=== PATIENT | male | born 1955 | race Caucasian/White ===

== ENCOUNTER 2017-04-10 12:12 | Day surgery (SDC) | payer OTHER ==
[~2017-04-10] VITALS: Ht 177.8 cm; Wt 104.3 kg
[~2017-04-10 12:12] MED LIST: ANACIN 400-321 EACH PO; ASPIRIN EC325 MG PO; IBUPROFEN400 MG PO; MOTRIN IB200 MG PO; OMEPRAZOLE40 MG PO; OXYCODON-ACETA1 EAC2 PO; PRILOSEC20 MG PO; PROBIOTIC1 EAC1 PO; RESTASIS1 DROP OD; TAMIFLU75 MG PO; VITAMIN C500 M1 PO; VITAMIN D1000 UNI1 PO
[2017-04-10] MEDS ORDERED: ACID REDUCER150 MG PO (12:32)
[2017-04-10] MEDS ORDERED: VITAMIN C500 M4 PO (12:34)
--- NOTE | 2017-04-10 13:29 | NUR ---
04/10/17 1329 Mayra Simms 1326 PATIENT ARRIVES TO PACU ALERT AND ORIENTED X3. RESP EVEN AND UNLABORED, REQUESTING TO BE OFF OXYGEN, ROOM AIR SATS 97% DENIES PAIN OR NAUSEA, PASSING GAS.
--- NOTE | 2017-05-09 07:48 | OR ---
[facility] [address], [place] [address] Signed DATE OF PROCEDURE: 04/10/17 PREOPERATIVE DIAGNOSES Sensation of incomplete bowel evacuation. Known history of diverticular changes of the colon. POSTOPERATIVE DIAGNOSIS Sigmoid and left-sided diverticulosis, otherwise normal. PROCEDURE: Total colonoscopy of the cecum. SURGEON: Annetta Morris MD ANESTHESIA: Intravenous sedation, Fentanyl 100 mcg, Versed 4 mg. INDICATION This 61-year-old white man is a patient of Dr. Shelton Crane and complains of incomplete bowel evacuation. He is known to have a history of diverticulosis. He underwent a gastric emptying study under my direction on March 25, 2017, following an upper endoscopy on March 11, 2017. He did have some delayed gastric emptying. He is admitted at this time to undergo colonoscopy to better evaluate the source of his complaint of incomplete bowel evacuation understanding the risks of bleeding, infection, perforation. FINDINGS The prep was good. Complete colonoscopy was undertaken of the cecum. There were numerous diverticula both small and large of the sigmoid and left colon, but no evidence of obstruction proper. The rectum and remaining colon were normal. DESCRIPTION OF PROCEDURE The patient was brought to the endoscopy suite and placed in lateral decubitus position, given intravenous sedation to the point of slurred speech and nystagmus. Digital rectal examination was normal. An Olympus video colonoscope was passed in the rectum and manipulated throughout the colon ultimately intubating the cecum itself. The ileocecal valve and appendiceal orifice were normal. The scope was withdrawn from that point. Examination throughout showed no evidence of polyps or cancer, but did show numerous diverticula of the sigmoid and left colon as previously noted. Retroflexed view in the rectum did confirm internal hemorrhoids, none of which were problematic. Scope was removed and the patient was taken to recovery room in good condition. Electronically Signed By: ANNETTA MORRIS MD 05/09/17 0748 PATIENT NAME: SLIME FAIR OPERATIVE REPORT DATE OF : 53 PHYSICIAN: ANNETTA MORRIS MD REPORT #: [id number] REPORT IS CONFIDENTIAL AND NOT TO BE RELEASED WITHOUT AUTHORIZATION [facility] [address], [place] [address] Signed CONCLUDING DIAGNOSIS: Diverticulosis. PLAN Recommend Citrucel 1 tablespoon daily and consideration for MiraLAX 1 scoop daily. He will return if there are ongoing problems. MD SKYE Orantes/Lucina /[id number] cc: Daniele Crane MD Electronically Signed By: ANNETTA MORRIS MD 05/09/17 0748 PATIENT NAME: SLIME FAIR OPERATIVE REPORT DATE OF : 53 PHYSICIAN: ANNETTA MORRIS MD REPORT #: [id number] REPORT IS CONFIDENTIAL AND NOT TO BE RELEASED WITHOUT AUTHORIZATION
== END 2017-04-10 14:00 | disposition home or self-care (01) ==
LOC: OPS 12:12 → DS 12:12 → OPS 12:15 → DS 12:15 → OPS 13:00
PROVIDERS: Surgery
PROC: 0DJD8ZZ Inspection of Lower Intestinal Tract, Via Natural or Artificial Opening Endoscopic (ICD-10-PCS; principal; 2017-04-10 13:00)
DX: K57.30 Diverticulosis of large intestine without perforation or abscess without bleeding (principal); F17.200 Nicotine dependence, unspecified, uncomplicated; K21.9 Gastro-esophageal reflux disease without esophagitis; I10 Essential (primary) hypertension; E66.3 Overweight; Z88.8 Allergy status to other drugs, medicaments and biological substances; Z88.5 Allergy status to narcotic agent; Z98.890 Other specified postprocedural states; Z90.49 Acquired absence of other specified parts of digestive tract; Z68.33 Body mass index [BMI] 33.0-33.9, adult
CPT/HCPCS: 99152; 99153; J2250; J3010; J7120

== ENCOUNTER 2019-06-22 12:54 | Day surgery (SDC) | payer OTHER, MEDICARE ==
[~2019-06-22] VITALS: Ht 177.8 cm; Wt 104.3 kg
[~2019-06-22 12:54] MED LIST changes: +ACID REDUCER150 MG PO; +MYLANTA GAS MIN42 MG PO; +PRILOSEC OTC20 MG PO; +VITAMIN C500 M4 PO
--- NOTE | 2019-06-22 15:05 | NUR ---
06/22/19 1505 Mayra Simms 1500 PATIENT ARRIVES TO PACU AWAKE BUT DROWSY/CONFUSED. RESP EVEN AND UNLABORED, NC AT 5 LITERS, OFF ON ARRIVAL TO PACU. ROOM AIR SATS >90%. PATIENT SLEEPING WHEN NOT STIMULATED.
--- NOTE | 2019-06-23 12:31 | OR ---
[facility] [address] [place], [place] [address] Signed DATE OF OPERATION: 06/22/2019 SURGEON: Annetta Morris MD PREOPERATIVE DIAGNOSES: 1. Persistent epigastric pain, gas bloat and regurgitation without associated vomiting. 2. Known history of diminished gastric motility; history of laparoscopic cholecystectomy, known hiatal hernia and reflux. POSTOPERATIVE DIAGNOSES: Normal-appearing esophagus, poor flap valve, mild antral gastritis and duodenitis. PROCEDURE: Esophagogastroduodenoscopy with biopsy. ANESTHESIA: Intravenous sedation, fentanyl 100 mcg, Versed 5 mg. INDICATION: This 63-year-old white man is a patient of Dr. Crane and well known to me from the past. He has had new onset of worsening symptoms of epigastric pain, bloating and a feeling of regurgitation, though no venancio vomiting. He has no dysphagia. He has been on PPI medication, H2 blockers, recently given also simethicone as well as Carafate slurry, but none of the things seem to improve his symptoms much. He has undergone evaluation for similar complaints in the past. He has undergone laparoscopic cholecystectomy in 2017. Additional evaluation included a gastric emptying study at least twice, which shows diminished gastric emptying. He has no diabetes. He is admitted at this time to undergo upper endoscopy to better characterize the problem, understanding the risks of bleeding, infection, and perforation. FINDINGS: Mild antral gastritis was noted as was mild duodenitis. Rugal folds were normal. There was no sign of bezoar. The esophagus was completely normal, though the flap valve was somewhat poor and easily effaced. CLOtest was -20 minutes postprocedure. Most likely, his symptoms are that of gastric dysmotility. DESCRIPTION OF PROCEDURE: The patient was brought to the endoscopy suite, given topical Hurricaine spray hypopharyngeal anesthesia and placed in lateral decubitus position and given intravenous sedation to the point of slurred speech and nystagmus. A bite block was placed. An Electronically Signed By: ANNETTA MORRIS MD 06/23/19 1231 PATIENT NAME: SLIME FAIR OPERATIVE REPORT DATE OF : 53 REPORT #: [id number] PHYSICIAN: ANNETTA MORRIS MD PCP: RAO CRANE MD REPORT IS CONFIDENTIAL AND NOT TO BE RELEASED WITHOUT AUTHORIZATION [facility] [address] [place], [place] [address] Signed Olympus video upper endoscope was passed in the hypopharynx. The vocal cords appeared normal. Scope was advanced to the esophagus throughout its length and it was normal. Scope was then passed into the stomach, which was insufflated with air. There was no sign of retained food or bile. Rugal folds appeared normal. Antrum appeared normal except in the peripyloric area where there was mild inflammation. Pylorus was normal without distortion or obstruction. The scope was passed into the duodenum, which had mild bulbar duodenitis, but no sign of ulcer and no 2nd or 3rd portion problems. Biopsies were taken of the duodenal bulb. The scope was withdrawn to the antrum where biopsies were obtained. Retroflexed view and withdrawal of the scope showed easily that the flap valve was effaced. There was no sign of actual esophagitis, however. The scope was straightened and withdrawn to the distal esophagus where biopsies were obtained and further withdrawal to the midesophagus where also biopsies were obtained. Nevertheless, however, the esophagus appeared normal. The scope was removed. The patient was taken to recovery room in good condition. CONCLUDING DIAGNOSIS: Most likely, he has a gastric dysmotility problem accounting for his symptoms given the findings and previous evaluation. PLAN: We will ask him to continue with the PPI medication and the simethicone. He can continue with the Carafate as well, but we will initiate also Reglan 10 mg with each meal and at bedtime. We will see him back in four to six weeks and assess his progress. MD SKYE Orantes/BEVERLYL /[id number] cc: Rao Crane MD Copies: RAO CRANE MD ~ Electronically Signed By: ANNETTA MORRIS MD 06/23/19 1231 PATIENT NAME: SLIME FAIR OPERATIVE REPORT DATE OF : 53 REPORT #: [id number] PHYSICIAN: ANNETTA MORRIS MD PCP: RAO CRANE MD REPORT IS CONFIDENTIAL AND NOT TO BE RELEASED WITHOUT AUTHORIZATION
--- NOTE | 2019-06-24 13:21 | PATH ---
[facility] [address] [place], [place] [address] Signed SPECIMEN(S): A DUODENUM BULB SPECIMEN(S): B ANTRUM/PYLORUS SPECIMEN(S): C LOWER ESOPHAGUS SPECIMEN(S): D MIDDLE ESOPHAGUS SPECIMEN SOURCE: A. DUODENUM BULB B. ANTRUM/PYLORUS C. LOWER ESOPHAGUS D. MIDDLE ESOPHAGUS CLINICAL HISTORY: Right upper abdominal pain, changes in bowel habits, reflux with esophagitis, dysmotility of stomach. Findings: Small hiatal hernia, mild antral gastritis. MICROSCOPIC DESCRIPTION: Histologic sections of all submitted blocks are examined by light microscopy. These findings, together with the gross examination, support the pathologic diagnosis. FINAL PATHOLOGIC DIAGNOSIS: A. Duodenal bulb, biopsy: - Duodenal mucosa without histopathologic abnormality. - Negative for Helicobacter organisms on HE stain. - Negative for dysplasia or malignancy. B. Stomach, antrum/pylori, biopsy: - Antral-type mucosa with no histopathologic abnormality. - Negative for Helicobacter organisms on HE stain. - Negative for dysplasia or malignancy. C. Esophagus, lower, biopsy: - Squamous mucosa with changes consistent with mild reflux esophagitis. - Negative for intestinal metaplasia, dysplasia, or malignancy. D. Esophagus, mid, biopsy: - Squamous mucosa with changes consistent with mild reflux esophagitis. - Negative for intestinal metaplasia, dysplasia, or malignancy. COMMENT: Sections of the distal and mid esophageal biopsies are similar and demonstrate benign squamous mucosa with mucosal capillary dilation, scattered intraepithelial lymphocytes, and areas of mild basal cell hyperplasia. These findings are consistent with changes secondary to bile reflux esophagitis. Clinical correlation is required. PATIENT NAME: SLIME FAIR PATHOLOGY DATE OF : 53 REPORT #: [id number] PHYSICIAN: FELICITAS CONRAD PCP: RAO MORROW MD REPORT IS CONFIDENTIAL AND NOT TO BE RELEASED WITHOUT AUTHORIZATION [facility] [address] [place], [place] [address] Signed NAL:[id number]:[id number] GROSS DESCRIPTION: Four specimens are received in four containers, labeled "RP." A. The specimen, labeled "RP, duodenal bulb biopsy," is received in formalin and consists of two, 0.1 and 0.2 cm girard-brown tissue fragments Specimen is entirely submitted in cassette (A1). B. The specimen, labeled "RP, antrum/pylorus biopsy," is received in formalin and consists of two, 0.2 and 0.3 cm girard tissue fragments. Specimen is entirely submitted in cassette (B1). C. The specimen, labeled "RP, lower esophageal biopsy," is received in formalin and consists of two, 0.2 and 0.3 cm girard-white tissue fragments. Specimen is entirely submitted in cassette (C1). D. The specimen, labeled "RP, mid-esophageal biopsy," is received in formalin and consists of two girard-white tissue fragments both measuring 0.2 cm. Specimen is entirely submitted in cassette (D1). AM (under the direct supervision of a pathologist) The Gross Description was prepared using a voice recognition system. The report was reviewed for accuracy; however, sound-alike word errors, addition and/or deletions may occur. If there is any question about this report, please contact Client Services. PERFORMING LABORATORY: The technical component was performed by [facility], [address] [place] [id number] (All Around Patternmaker: Shelley Wilson MD; CLIA# [id number]). Professional interpretation was performed by [facility], [facility], [address] [address] (All Around Patternmaker: Piotr Ca MD; CLIA# [id number]). Diagnostician: Judy Mills MD Pathologist Electronically Signed 06/24/2019 Copies: ~ PATIENT NAME: SLIME FAIR PATHOLOGY DATE OF : 53 REPORT #: [id number] PHYSICIAN: FELICITAS PATHOLOGY PCP: RAO MORROW MD REPORT IS CONFIDENTIAL AND NOT TO BE RELEASED WITHOUT AUTHORIZATION
== END 2019-06-22 15:40 | disposition home or self-care (01) ==
LOC: OPS 12:54 → DS 12:54 → OPS 14:00 → DS 14:00 → OPS 15:40
PROVIDERS: Surgery
PROC: 0DB78ZX Excision of Stomach, Pylorus, Via Natural or Artificial Opening Endoscopic, Diagnostic (ICD-10-PCS; 2019-06-22)
PROC: 0DB38ZX Excision of Lower Esophagus, Via Natural or Artificial Opening Endoscopic, Diagnostic (ICD-10-PCS; 2019-06-22)
PROC: 0DB28ZX Excision of Middle Esophagus, Via Natural or Artificial Opening Endoscopic, Diagnostic (ICD-10-PCS; 2019-06-22)
PROC: 0DB98ZX Excision of Duodenum, Via Natural or Artificial Opening Endoscopic, Diagnostic (ICD-10-PCS; principal; 2019-06-22 14:00)
DX: K29.70 Gastritis, unspecified, without bleeding (principal); K29.80 Duodenitis without bleeding; K21.0 Gastro-esophageal reflux disease with esophagitis; K31.89 Other diseases of stomach and duodenum; Z88.5 Allergy status to narcotic agent; Z88.8 Allergy status to other drugs, medicaments and biological substances; Z91.012 Allergy to eggs; Z91.018 Allergy to other foods; Z79.899 Other long term (current) drug therapy; Z98.890 Other specified postprocedural states
CPT/HCPCS: G0500; J2250; J3010; J7121

== ENCOUNTER 2019-06-25 16:29 | Emergency (ER) | payer OTHER, MEDICARE ==
[~2019-06-25] VITALS: Ht 177.8 cm; Wt 106.6 kg
--- OUTSIDE RECORDS SUMMARY | ~2019-06-25 | XMS | Encounter Summary ---
Demographics + + + | Address | [address] | | | [place] [address] | + + + | Home Phone | | + + + | Preferred Language | Unknown | + + + | Marital Status | Unknown | + + + | Mormonism Affiliation | Unknown | + + + | Race | Unknown | + + + | Ethnic Group | Unknown | + + + Author + + + | Author | [facility] | | | and [place] | + + + | Organization | [facility] | | | and [place] | + + + | Address | Unknown | + + + | Phone | Unavailable | + + + Care Team Providers + +------+ + | Care Bag Tester Name | Role | Phone | + +------+ + PCP | Unavailable | + +------+ + Encounter Details +--------+ + + + + | Date | Type | Department | Care Team | Description | +--------+ + + + + | 09/23/ | Hospital | [facility] | | | | 2006 | Encounter | MED CTR LABORATORY | | | | | | [address] | | | | | | [place] | | | | | | [address] | | | | | | [phone] | | | +--------+ + + + + Social History + +-------+ +--------+------+ | Tobacco Use | Types | Packs/Day | Years | Date | | | | | Used | | + +-------+ +--------+------+ | Never Assessed | | | | | + +-------+ +--------+------+ + + + | Sex Assigned at | Date Recorded | | | | + + + | Not on file | | + + + + + + + | Job Start Date | Occupation | Industry | + + + + | Not on file | Not on file | Not on file | + + + + + + + + | Travel History | Travel Start | Travel End | + + + + + + | No recent travel history available. | + + documented as of this encounter Plan of Treatment Not on filedocumented as of this encounter Visit Diagnoses Not on filedocumented in this encounter"
--- OUTSIDE RECORDS SUMMARY | ~2019-06-25 | XMS | Encounter Summary ---
Demographics + + + | Address | [address] | | | [place] [address] | + + + | Home Phone | | + + + | Preferred Language | Unknown | + + + | Marital Status | Unknown | + + + | Confucianist Affiliation | Unknown | + + + | Race | Unknown | + + + | Ethnic Group | Unknown | + + + Author + + + | Author | [facility] | | | and [place] | + + + | Organization | [facility] | | | and [place] | + + + | Address | Unknown | + + + | Phone | Unavailable | + + + Care Team Providers + +------+ + | Care Cattle Producers Name | Role | Phone | + +------+ + PCP | Unavailable | + +------+ + Encounter Details +--------+ + + + + | Date | Type | Department | Care Team | Description | +--------+ + + + + | 09/23/ | Hospital | [facility] | | | | 2006 | Encounter | MED CTR XRAY [address] | | | | | | [place] | | | | | | [place] [address] | | | | | | [phone] | | | +--------+ + + + [...]
--- OUTSIDE RECORDS SUMMARY | ~2019-06-25 | XMS | Clinical Summary ---
Demographics + + + | Address | [address] | | | [place] [address] | + + + | Home Phone | | + + + | Preferred Language | Unknown | + + + | Marital Status | Unknown | + + + | Uatsdin Affiliation | Unknown | + + + | Race | Unknown | + + + | Ethnic Group | Unknown | + + + Author + + + | Author | [facility] | | | and [place] | + + + | Organization | [facility] | | | and [place] | + + + | Address | Unknown | + + + | Phone | Unavailable | + + + Care Team Providers + +------+ + | Care Academic Adviser Name | Role | Phone | + +------+ + PCP | Unavailable | + +------+ + Allergies Not on File Medications Not on file Active Problems Not on file Social History + +-------+ +--------+------+ | Tobacco [...] recent travel history available. | + + Last Filed Vital Signs Not on file Plan of Treatment + + + + + | Health Maintenance | Due Date | Last Done | Comments | + + + + + | Vaccine: | | | | | Dtap/Tdap/Td (1 - | 5 | | | | Tdap) | | | | + + + + + | Vaccine: Zoster (1 | | | | | of 2) | 4 | | | + + + + + | Vaccine: Influenza | | | | | (#1) | 9 | | | + + + + + Results Not on filefrom Last 3 Months"
--- OUTSIDE RECORDS SUMMARY | ~2019-06-25 | XMS | Encounter Summary ---
Demographics + + + | Address | [address] | | | [place] [address] | + + + | Home Phone | | + + + | Preferred Language | Unknown | + + + | Marital Status | Unknown | + + + | Protestant Affiliation | Unknown | + + + | Race | Unknown | + + + | Ethnic Group | Unknown | + + + Author + + + | Author | [facility] | | | and [place] | + + + | Organization | [facility] | | | and [place] | + + + | Address | Unknown | + + + | Phone | Unavailable | + + + Care Team Providers + +------+ + | Care City Planner Name | Role | Phone | + +------+ + PCP | Unavailable | + +------+ + Encounter Details +--------+ + + + + | Date | Type | Department | Care Team | Description | +--------+ + + + + | 09/01/ | Hospital | [facility] | | | | 2006 | Encounter | MED CTR GENERIC IP | | | | | | CONV DEPT [address] | | | | | | [place], | | | | | | [place] [address] | | | | | | [phone] | | | +--------+ + + + [...]
--- OUTSIDE RECORDS SUMMARY | ~2019-06-25 | XMS | Encounter Summary ---
Demographics + + + | Address | [address] | | | [place] [address] | + + + | Home Phone | | + + + | Preferred Language | Unknown | + + + | Marital Status | Unknown | + + + | Restorationism Affiliation | Unknown | + + + | Race | Unknown | + + + | Ethnic Group | Unknown | + + + Author + + + | Author | [facility] | | | and [place] | + + + | Organization | [facility] | | | and [place] | + + + | Address | Unknown | + + + | Phone | Unavailable | + + + Care Team Providers + +------+ + | Care Vocational Teacher Name | Role | Phone | + +------+ + PCP | Unavailable | + +------+ + Encounter Details +--------+ + + + + | Date | Type | Department | Care Team | Description | +--------+ + + + + | 11/07/ | Hospital | [facility] | | | | 2006 | Encounter | MED CTR XRAY [address] | | | | | | [place] | | | | | | [place] [address] | | | | | | [phone] | | | +--------+ + + + [...]
--- OUTSIDE RECORDS SUMMARY | ~2019-06-25 | XMS | Encounter Summary ---
Demographics + + + | Address | [address] | | | [place] [address] | + + + | Home Phone | | + + + | Preferred Language | Unknown | + + + | Marital Status | Unknown | + + + | Hoahaoism Affiliation | Unknown | + + + | Race | Unknown | + + + | Ethnic Group | Unknown | + + + Author + + + | Author | [facility] | | | and [place] | + + + | Organization | [facility] | | | and [place] | + + + | Address | Unknown | + + + | Phone | Unavailable | + + + Care Team Providers + +------+ + | Care Internet Salesperson Name | Role | Phone | + +------+ + PCP | Unavailable | + +------+ + Encounter Details +--------+ + + + + | Date | Type | Department | Care Team | Description | +--------+ + + + + | 11/07/ | Hospital | [facility] | | | | 2006 | Encounter | MED CTR XRAY [address] | | | | | | [place] | | | | | | [place] [address] | | | | | | [phone] | | | +--------+ + + + [...]
--- OUTSIDE RECORDS SUMMARY | ~2019-06-25 | XMS | Encounter Summary ---
Demographics + + + | Address | [address] | | | [place] [address] | + + + | Home Phone | | + + + | Preferred Language | Unknown | + + + | Marital Status | Unknown | + + + | Mormonism Affiliation | Unknown | + + + | Race | Unknown | + + + | Ethnic Group | Unknown | + + + Author + + + | Author | [facility] | | | and [place] | + + + | Organization | [facility] | | | and [place] | + + + | Address | Unknown | + + + | Phone | Unavailable | + + + Care Team Providers + +------+ + | Care Conduit Worker Name | Role | Phone | + +------+ + PCP | Unavailable | + +------+ + Encounter Details +--------+ + + + + | Date | Type | Department | Care Team | Description | +--------+ + + + + | 09/11/ | Hospital | [facility] | | | | 2006 | Encounter | MED CTR XRAY [address] | | | | | | [place] | | | | | | [place] [address] | | | | | | [phone] | | | +--------+ + + + [...]
--- OUTSIDE RECORDS SUMMARY | ~2019-06-25 | XMS | Encounter Summary ---
Demographics + + + | Address | [address] | | | [place] [address] | + + + | Home Phone | | + + + | Preferred Language | Unknown | + + + | Marital Status | Unknown | + + + | Zoroastrianism Affiliation | Unknown | + + + | Race | Unknown | + + + | Ethnic Group | Unknown | + + + Author + + + | Author | [facility] | | | and [place] | + + + | Organization | [facility] | | | and [place] | + + + | Address | Unknown | + + + | Phone | Unavailable | + + + Care Team Providers + +------+ + | Care Pull Through Hooker Name | Role | Phone | + +------+ + PCP | Unavailable | + +------+ + Encounter Details +--------+ + + + + | Date | Type | Department | Care Team | Description | +--------+ + + + + | 12/05/ | Hospital | [facility] | | | | 2006 | Encounter | MED CTR XRAY [address] | | | | | | [place] | | | | | | [place] [address] | | | | | | [phone] | | | +--------+ + + + [...]
--- OUTSIDE RECORDS SUMMARY | ~2019-06-25 | XMS | Encounter Summary ---
Demographics + + + | Address | [address] | | | [place] [address] | + + + | Home Phone | | + + + | Preferred Language | Unknown | + + + | Marital Status | Unknown | + + + | Restorationist Affiliation | Unknown | + + + | Race | Unknown | + + + | Ethnic Group | Unknown | + + + Author + + + | Author | [facility] | | | and [place] | + + + | Organization | [facility] | | | and [place] | + + + | Address | Unknown | + + + | Phone | Unavailable | + + + Care Team Providers + +------+ + | Care Instructor Looping Name | Role | Phone | + +------+ + PCP | Unavailable | + +------+ + Encounter Details +--------+ + + + + | Date | Type | Department | Care Team | Description | +--------+ + + + + | 09/23/ | Hospital | [facility] | | | | 2006 | Encounter | MED CTR XRAY [address] | | | | | | [place] | | | | | | [place] [address] | | | | | | [phone] | | | +--------+ + + + [...]
--- OUTSIDE RECORDS SUMMARY | ~2019-06-25 | XMS | Encounter Summary ---
Demographics + + + | Address | [address] | | | [place] [address] | + + + | Home Phone [...] | + + + | Organization | [facility] | | | and [place] | + + + | Address | Unknown | + + + | Phone | Unavailable | + + + Care Team Providers + +------+ + | Care Follow Up Manager Name | Role | Phone | + +------+ + PCP | Unavailable | + +------+ + Encounter Details +--------+ + + + + | Date | Type | Department | Care Team | Description | +--------+ + + + + | 08/21/ | Hospital | [facility] | | | | 2006 | Encounter | MED CTR XRAY [address] | | | | | | [place] | | | | | | [place] [address] | | | | | | [phone] | | | +--------+ + + + [...]
--- OUTSIDE RECORDS SUMMARY | ~2019-06-25 | XMS | Encounter Summary ---
Demographics + + + | Address | [address] | | | [place] [address] | + + + | Home Phone [...] + + + | Author | [facility] | | | and [place] | + + + | Organization | [facility] | | | and [place] | + + + | Address | Unknown | + + + | Phone | Unavailable | + + + Care Team Providers + +------+ + | Care Hydraulic Pile Hammer Operator Name | Role | Phone | + +------+ + PCP | Unavailable | + +------+ + Encounter Details +--------+ + + + + | Date | Type | Department | Care Team | Description | +--------+ + + + + | 09/13/ | Hospital | [facility] | | | | 2006 - | Encounter | MED CTR GENERIC IP | | | | | | CONV DEPT [address] | | | | 09/14/ | | [place], | | | | 2006 | | [place] [address] | | | | | | [phone] | | | +--------+ + + + [...]
--- OUTSIDE RECORDS SUMMARY | ~2019-06-25 | XMS | Clinical Summary ---
Demographics + + + | Address | [address] | | | [place] [address] | + + + | Home Phone | | + + + | Preferred Language | Unknown | + + + | Marital Status | Unknown | + + + | Jain Affiliation | Unknown | + + + | Race | Unknown | + + + | Ethnic Group | Unknown | + + + Author + + + | Author | [facility] | | | and Bert | + + + | Organization | [facility] | | | and [place] | + + + | Address | Unknown | + + + | Phone | Unavailable | + + + Care Team Providers + +------+ + | Care Retail Sales Associate Bilingual Name | Role | Phone | + [...]
--- OUTSIDE RECORDS SUMMARY | ~2019-06-25 | XMS | Encounter Summary ---
Demographics + + + | Address | [address] | | | [place] [address] | + + + | Home Phone | | + + + | Preferred Language | Unknown | + + + | Marital Status | Unknown | + + + | Nondenominational Affiliation | Unknown | + + + | Race | Unknown | + + + | Ethnic Group | Unknown | + + + Author + + + | Author | [facility] | | | and [place] | + + + | Organization | [facility] | | | and [place] | + + + | Address | Unknown | + + + | Phone | Unavailable | + + + Care Team Providers + +------+ + | Care Abap Developer Name | Role | Phone | + +------+ + PCP | Unavailable | + +------+ + Encounter Details +--------+ + + + + | Date | Type | Department | Care Team | Description | +--------+ + + + + | 09/23/ | Hospital | [facility] | | | | 2006 | Encounter | MED CTR LABORATORY | | | | | | [address] | | | | | | [place] | | | | | | [address] | | | | | | [phone] | | | +--------+ + + + [...]
--- OUTSIDE RECORDS SUMMARY | ~2019-06-25 | XMS | Encounter Summary ---
Demographics + + + | Address | [address] | | | [place] [address] | + + + | Home Phone | | + + + | Preferred Language | Unknown | + + + | Marital Status | Unknown | + + + | Scientologist Affiliation | Unknown | + + + | Race | Unknown | + + + | Ethnic Group | Unknown | + + + Author + + + | Author | [facility] | | | and [place] | + + + | Organization | [facility] | | | and [place] | + + + | Address | Unknown | + + + | Phone | Unavailable | + + + Care Team Providers + +------+ + | Care Hand Lacer Name | Role | Phone | + +------+ + PCP | Unavailable | + +------+ + Encounter Details +--------+ + + + + | Date | Type | Department | Care Team | Description | +--------+ + + + + | 09/01/ | Hospital | [facility] | | | | 2006 | Encounter | MED CTR GENERIC IP | | | | | | CONV DEPT [address] | | | | | | [place], | | | | | | [place] [address] | | | | | | [phone] | | | +--------+ + + + [...]
--- OUTSIDE RECORDS SUMMARY | ~2019-06-25 | XMS | Encounter Summary ---
Demographics + + + | Address | [address] | | | [place] [address] | + + + | Home Phone | | + + + | Preferred Language | Unknown | + + + | Marital Status | Unknown | + + + | Taoism Affiliation | Unknown | + + + | Race | Unknown | + + + | Ethnic Group | Unknown | + + + Author + + + | Author | [facility] | | | and [place] | + + + | Organization | [facility] | | | and [place] | + + + | Address | Unknown | + + + | Phone | Unavailable | + + + Care Team Providers + +------+ + | Care Bowstring Maker Name | Role | Phone | + +------+ + PCP | Unavailable | + +------+ + Encounter Details +--------+ + + + + | Date | Type | Department | Care Team | Description | +--------+ + + + + | 12/05/ | Hospital | [facility] | | | | 2006 | Encounter | MED CTR XRAY [address] | | | | | | [place] | | | | | | [place] [address] | | | | | | [phone] | | | +--------+ + + + [...]
--- OUTSIDE RECORDS SUMMARY | ~2019-06-25 | XMS | Encounter Summary ---
Demographics + + + | Address | [address] | | | [place] [address] | + + + | Home Phone | | + + + | Preferred Language | Unknown | + + + | Marital Status | Unknown | + + + | Christian Affiliation | Unknown | + + + | Race | Unknown | + + + | Ethnic Group | Unknown | + + + Author + + + | Author | [facility] | | | and [place] | + + + | Organization | [facility] | | | and [place] | + + + | Address | Unknown | + + + | Phone | Unavailable | + + + Care Team Providers + +------+ + | Care Lead Generator Name | Role | Phone | + +------+ + PCP | Unavailable | + +------+ + Encounter Details +--------+ + + + + | Date | Type | Department | Care Team | Description | +--------+ + + + + | 09/11/ | Hospital | [facility] | | | | 2006 | Encounter | MED CTR XRAY [address] | | | | | | [place] | | | | | | [place] [address] | | | | | | [phone] | | | +--------+ + + + [...]
--- OUTSIDE RECORDS SUMMARY | ~2019-06-25 | XMS | Encounter Summary ---
Demographics + + + | Address | [address] | | | [place] [address] | + + + | Home Phone | | + + + | Preferred Language | Unknown | + + + | Marital Status | Unknown | + + + | Denominational Affiliation | Unknown | + + + | Race | Unknown | + + + | Ethnic Group | Unknown | + + + Author + + + | Author | [facility] | | | and [place] | + + + | Organization | and [facility] | | | and [place] | + + + | Address | Unknown | + + + | Phone | Unavailable | + + + Care Team Providers + +------+ + | Care Doughnut Maker Name | Role | Phone | + +------+ + PCP | Unavailable | + +------+ + Encounter Details +--------+ + + + + | Date | Type | Department | Care Team | Description | +--------+ + + + + | 09/13/ | Hospital | [facility] | | | | 2006 - | Encounter | MED CTR GENERIC IP | | | | | | CONV DEPT [address] | | | | 09/14/ | | [place], | | | | 2006 | | [place] [address] | | | | | | [phone] | | | +--------+ + + + [...]
--- OUTSIDE RECORDS SUMMARY | ~2019-06-25 | XMS | Encounter Summary ---
Demographics + + + | Address | [address] | | | [place] [address] | + + + | Home Phone | | + + + | Preferred Language | Unknown | + + + | Marital Status | Unknown | + + + | Congregational Affiliation | Unknown | + + + | Race | Unknown | + + + | Ethnic Group | Unknown | + + + Author + + + | Author | [facility] | | | and [place] | + + + | Organization | [facility] | | | and [place] | + + + | Address | Unknown | + + + | Phone | Unavailable | + + + Care Team Providers + +------+ + | Care Semiconductor Packages Sealer Name | Role | Phone | + +------+ + PCP | Unavailable | + +------+ + Encounter Details +--------+ + + + + | Date | Type | Department | Care Team | Description | +--------+ + + + + | 08/21/ | Hospital | [facility] | | | | 2006 | Encounter | MED CTR XRAY [address] | | | | | | [place] | | | | | | [place] [address] | | | | | | [phone] | | | +--------+ + + + [...]
[2019-06-25] MEDS ORDERED: REGLAN10 MG PO (16:56)
[2019-06-25] MEDS ORDERED: SUCRALFATE1 GM PO (16:56)
[2019-06-25] MEDS ORDERED: NORCO 7.5-3251 EACH PO (19:26)
[2019-06-25] MEDS ORDERED: FLAGYL500 MG PO (19:26)
[2019-06-25] MEDS ORDERED: LEVAQUIN750 MG PO (19:26)
== END 2019-06-25 21:08 | disposition home or self-care (01) ==
LOC: ED 16:29
DX: K57.32 Diverticulitis of large intestine without perforation or abscess without bleeding (principal); Z87.891 Personal history of nicotine dependence; Z79.899 Other long term (current) drug therapy; Z79.82 Long term (current) use of aspirin
CPT/HCPCS: 51798; 74177; 80053; 81001; 83690; 85025; 96368; 99284-25; J1956

== ENCOUNTER 2019-07-21 07:33 | Emergency (ER) | payer OTHER, MEDICARE ==
[~2019-07-21] VITALS: Ht 177.8 cm; Wt 101.6 kg
--- OUTSIDE RECORDS SUMMARY | ~2019-07-21 | XMS | Encounter Summary ---
Demographics + + + | Address | [address] | | | [place] [address] | + + + | Home Phone | | + + + | Preferred Language | Unknown | + + + | Marital Status | Unknown | + + + | Alevism Affiliation | Unknown | + + + | Race | Unknown | + + + | Ethnic Group | Unknown | + + + Author + + + | Author | [facility] | | | and [place] | + + + | Organization | [facility] | | | and [place] | + + + | Address | Unknown | + + + | Phone | Unavailable | + + + Care Team Providers + +------+ + | Care Swimming Coach Or Instructor Name | Role | Phone | + +------+ + PCP | Unavailable | + +------+ + Encounter Details +--------+ + + + + | Date | Type | Department | Care Team | Description | +--------+ + + + + | 09/23/ | Hospital | [facility] | | | | 2006 | Encounter | MED CTR LABORATORY | | | | | | [address] | | | | | | [place] | | | | | | [address] | | | | | | [phone] | | | +--------+ + + + [...]
--- OUTSIDE RECORDS SUMMARY | ~2019-07-21 | XMS | Encounter Summary ---
Demographics + + + | Address | [address] | | | [place] [address] | + + + | Home Phone | | + + + | Preferred Language | Unknown | + + + | Marital Status | Unknown | + + + | Faith Affiliation | Unknown | + + + | Race | Unknown | + + + | Ethnic Group | Unknown | + + + Author + + + | Author | [facility] | | | and [place] | + + + | Organization | [facility] | | | and [place] | + + + | Address | Unknown | + + + | Phone | Unavailable | + + + Care Team Providers + +------+ + | Care Senior Business Architect Name | Role | Phone | + +------+ + PCP | Unavailable | + +------+ + Encounter Details +--------+ + + + + | Date | Type | Department | Care Team | Description | +--------+ + + + + | 09/23/ | Hospital | [facility] | | | | 2006 | Encounter | MED CTR XRAY [address] | | | | | | [place] | | | | | | [place] [address] | | | | | | [phone] | | | +--------+ + + + [...]
--- OUTSIDE RECORDS SUMMARY | ~2019-07-21 | XMS | Encounter Summary ---
Demographics + + + | Address | [address] | | | [place] [address] | + + + | Home Phone | | + + + | Preferred Language | Unknown | + + + | Marital Status | Unknown | + + + | Mu-Ism Affiliation | Unknown | + + + | Race | Unknown | + + + | Ethnic Group | Unknown | + + + Author + + + | Author | [facility] | | | and [place] | + + + | Organization | [facility] | | | and [place] | + + + | Address | Unknown | + + + | Phone | Unavailable | + + + Care Team Providers + +------+ + | Care House Repairer Name | Role | Phone | + +------+ + PCP | Unavailable | + +------+ + Encounter Details +--------+ + + + + | Date | Type | Department | Care Team | Description | +--------+ + + + + | 09/11/ | Hospital | [facility] | | | | 2006 | Encounter | MED CTR XRAY [address] | | | | | | [place] | | | | | | [place] [address] | | | | | | [phone] | | | +--------+ + + + [...]
--- OUTSIDE RECORDS SUMMARY | ~2019-07-21 | XMS | Clinical Summary ---
Demographics + + + | Address | [address] | | | [place] [address] | + + + | Home Phone | | + + + | Preferred Language | Unknown | + + + | Marital Status | Unknown | + + + | Baptist Affiliation | Unknown | + + + | Race | Unknown | + + + | Ethnic Group | Unknown | + + + Author + + + | Author | [facility] | | | and Bert | + + + | Organization | [facility] | | | and [place] | + + + | Address | Unknown | + + + | Phone | Unavailable | + + + Care Team Providers + +------+ + | Care Business Office Coordinator Name | Role | Phone | + [...] | Vaccine: | | | | | Pneumococcal 65+ (1 | 9 | | | | of 2 - PCV13) | | | | + + + + + Results Not on filefrom Last 3 Months"
--- OUTSIDE RECORDS SUMMARY | ~2019-07-21 | XMS | Clinical Summary ---
Demographics + + + | Address | [address] | | | [place] [address] | + + + | Home Phone | | + + + | Preferred Language | Unknown | + + + | Marital Status | Unknown | + + + | Episcopal Affiliation | Unknown | + + + | Race | Unknown | + + + | Ethnic Group | Unknown | + + + Author + + + | Author | [facility] | | | and Bert | + + + | Organization | [facility] | | | and [place] | + + + | Address | Unknown | + + + | Phone | Unavailable | + + + Care Team Providers + +------+ + | Care Press Loader Name | Role | Phone | + [...]
--- OUTSIDE RECORDS SUMMARY | ~2019-07-21 | XMS | Encounter Summary ---
Demographics + + + | Address | [address] | | | [place] [address] | + + + | Home Phone | | + + + | Preferred Language | Unknown | + + + | Marital Status | Unknown | + + + | Pentecostal Affiliation | Unknown | + + + | Race | Unknown | + + + | Ethnic Group | Unknown | + + + Author + + + | Author | [facility] | | | and [place] | + + + | Organization | [facility] | | | and [place] | + + + | Address | Unknown | + + + | Phone | Unavailable | + + + Care Team Providers + +------+ + | Care Roller Printer Name | Role | Phone | + +------+ + PCP | Unavailable | + +------+ + Encounter Details +--------+ + + + + | Date | Type | Department | Care Team | Description | +--------+ + + + + | 08/21/ | Hospital | [facility] | | | | 2006 | Encounter | MED CTR XRAY [address] | | | | | | [place] | | | | | | [place] [address] | | | | | | [phone] | | | +--------+ + + + [...]
--- OUTSIDE RECORDS SUMMARY | ~2019-07-21 | XMS | Encounter Summary ---
Demographics + + + | Address | [address] | | | [place] [address] | + + + | Home Phone | | + + + | Preferred Language | Unknown | + + + | Marital Status | Unknown | + + + | Latter-Day Affiliation | Unknown | + + + | Race | Unknown | + + + | Ethnic Group | Unknown | + + + Author + + + | Author | [facility] | | | and [place] | + + + | Organization | [facility] | | | and [place] | + + + | Address | Unknown | + + + | Phone | Unavailable | + + + Care Team Providers + +------+ + | Care Security Architect Name | Role | Phone | + +------+ + PCP | Unavailable | + +------+ + Encounter Details +--------+ + + + + | Date | Type | Department | Care Team | Description | +--------+ + + + + | 09/23/ | Hospital | [facility] | | | | 2006 | Encounter | MED CTR LABORATORY | | | | | | [address] | | | | | | [place] | | | | | | [address] | | | | | | [phone] | | | +--------+ + + + [...]
--- OUTSIDE RECORDS SUMMARY | ~2019-07-21 | XMS | Encounter Summary ---
Demographics + + + | Address | [address] | | | [place] [address] | + + + | Home Phone | | + + + | Preferred Language | Unknown | + + + | Marital Status | Unknown | + + + | Jainism Affiliation | Unknown | + + + | Race | Unknown | + + + | Ethnic Group | Unknown | + + + Author + + + | Author | [facility] | | | and [place] | + + + | Organization | [facility] | | | and [place] | + + + | Address | Unknown | + + + | Phone | Unavailable | + + + Care Team Providers + +------+ + | Care Coal Mine Inspector Name | Role | Phone | + +------+ + PCP | Unavailable | + +------+ + Encounter Details +--------+ + + + + | Date | Type | Department | Care Team | Description | +--------+ + + + + | 12/05/ | Hospital | [facility] | | | | 2006 | Encounter | MED CTR XRAY [address] | | | | | | [place] | | | | | | [place] [address] | | | | | | [phone] | | | +--------+ + + + [...]
--- OUTSIDE RECORDS SUMMARY | ~2019-07-21 | XMS | Encounter Summary ---
Demographics + + + | Address | [address] | | | [place] [address] | + + + | Home Phone | | + + + | Preferred Language | Unknown | + + + | Marital Status | Unknown | + + + | Anabaptism Affiliation | Unknown | + + + | Race | Unknown | + + + | Ethnic Group | Unknown | + + + Author + + + | Author | [facility] | | | and [place] | + + + | Organization | [facility] | | | and [place] | + + + | Address | Unknown | + + + | Phone | Unavailable | + + + Care Team Providers + +------+ + | Care Contracts Director Name | Role | Phone | + +------+ + PCP | Unavailable | + +------+ + Encounter Details +--------+ + + + + | Date | Type | Department | Care Team | Description | +--------+ + + + + | 09/01/ | Hospital | [facility] | | | | 2006 | Encounter | MED CTR GENERIC IP | | | | | | CONV DEPT [address] | | | | | | [place], | | | | | | [place] [address] | | | | | | [phone] | | | +--------+ + + + [...]
--- OUTSIDE RECORDS SUMMARY | ~2019-07-21 | XMS | Encounter Summary ---
Demographics + + + | Address | [address] | | | [place] [address] | + + + | Home Phone | | + + + | Preferred Language | Unknown | + + + | Marital Status | Unknown | + + + | Rastafarian Affiliation | Unknown | + + + | Race | Unknown | + + + | Ethnic Group | Unknown | + + + Author + + + | Author | [facility] | | | and [place] | + + + | Organization | [facility] | | | and [place] | + + + | Address | Unknown | + + + | Phone | Unavailable | + + + Care Team Providers + +------+ + | Care Senior Sql Database Developer Name | Role | Phone | + +------+ + PCP | Unavailable | + +------+ + Encounter Details +--------+ + + + + | Date | Type | Department | Care Team | Description | +--------+ + + + + | 09/01/ | Hospital | [facility] | | | | 2006 | Encounter | MED CTR GENERIC IP | | | | | | CONV DEPT [address] | | | | | | [place], | | | | | | [place] [address] | | | | | | [phone] | | | +--------+ + + + [...]
--- OUTSIDE RECORDS SUMMARY | ~2019-07-21 | XMS | Encounter Summary ---
Demographics + + + | Address | [address] | | | [place] [address] | + + + | Home Phone | | + + + | Preferred Language | Unknown | + + + | Marital Status | Unknown | + + + | Yazidi Affiliation | Unknown | + + + | Race | Unknown | + + + | Ethnic Group | Unknown | + + + Author + + + | Author | [facility] | | | and [place] | + + + | Organization | [facility] | | | and [place] | + + + | Address | Unknown | + + + | Phone | Unavailable | + + + Care Team Providers + +------+ + | Care Ball Thread Machine Tender Name | Role | Phone | + +------+ + PCP | Unavailable | + +------+ + Encounter Details +--------+ + + + + | Date | Type | Department | Care Team | Description | +--------+ + + + + | 11/07/ | Hospital | [facility] | | | | 2006 | Encounter | MED CTR XRAY [address] | | | | | | [place] | | | | | | [place] [address] | | | | | | [phone] | | | +--------+ + + + [...]
--- OUTSIDE RECORDS SUMMARY | ~2019-07-21 | XMS | Encounter Summary ---
Demographics + + + | Address | [address] | | | [place] [address] | + + + | Home Phone [...] | + + + | Organization | [facility] | | | and [place] | + + + | Address | Unknown | + + + | Phone | Unavailable | + + + Care Team Providers + +------+ + | Care Fur Remodeler Name | Role | Phone | + +------+ + PCP | Unavailable | + +------+ + Encounter Details +--------+ + + + + | Date | Type | Department | Care Team | Description | +--------+ + + + + | 11/07/ | Hospital | [facility] | | | | 2006 | Encounter | MED CTR XRAY [address] | | | | | | [place] | | | | | | [place] [address] | | | | | | [phone] | | | +--------+ + + + [...]
--- OUTSIDE RECORDS SUMMARY | ~2019-07-21 | XMS | Encounter Summary ---
Demographics + + + | Address | [address] | | | [place] [address] | + + + | Home Phone | | + + + | Preferred Language | Unknown | + + + | Marital Status | Unknown | + + + | Jewish Affiliation | Unknown | + + + | Race | Unknown | + + + | Ethnic Group | Unknown | + + + Author + + + | Author | [facility] | | | and [place] | + + + | Organization | [facility] | | | and [place] | + + + | Address | Unknown | + + + | Phone | Unavailable | + + + Care Team Providers + +------+ + | Care Cash Sales Audit Clerk Name | Role | Phone | + +------+ + PCP | Unavailable | + +------+ + Encounter Details +--------+ + + + + | Date | Type | Department | Care Team | Description | +--------+ + + + + | 09/13/ | Hospital | [facility] | | | | 2006 - | Encounter | MED CTR GENERIC IP | | | | | | CONV DEPT [address] | | | | 09/14/ | | [place], | | | | 2006 | | [place] [address] | | | | | | [phone] | | | +--------+ + + + [...]
--- OUTSIDE RECORDS SUMMARY | ~2019-07-21 | XMS | Encounter Summary ---
Demographics + + + | Address | [address] | | | [place] [address] | + + + | Home Phone | | + + + | Preferred Language | Unknown | + + + | Marital Status | Unknown | + + + | Bahai Affiliation | Unknown | + + + | Race | Unknown | + + + | Ethnic Group | Unknown | + + + Author + + + | Author | [facility] | | | and [place] | + + + | Organization | [facility] | | | and [place] | + + + | Address | Unknown | + + + | Phone | Unavailable | + + + Care Team Providers + +------+ + | Care Final Inspector Motorcyles Name | Role | Phone | + +------+ + PCP | Unavailable | + +------+ + Encounter Details +--------+ + + + + | Date | Type | Department | Care Team | Description | +--------+ + + + + | 12/05/ | Hospital | [facility] | | | | 2006 | Encounter | MED CTR XRAY [address] | | | | | | [place] | | | | | | [place] [address] | | | | | | [phone] | | | +--------+ + + + [...]
--- OUTSIDE RECORDS SUMMARY | ~2019-07-21 | XMS | Encounter Summary ---
Demographics + + + | Address | [address] | | | [place] [address] | + + + | Home Phone | | + + + | Preferred Language | Unknown | + + + | Marital Status | Unknown | + + + | Adventist Affiliation | Unknown | + + + | Race | Unknown | + + + | Ethnic Group | Unknown | + + + Author + + + | Author | [facility] | | | and [place] | + + + | Organization | [facility] | | | and [place] | + + + | Address | Unknown | + + + | Phone | Unavailable | + + + Care Team Providers + +------+ + | Care Cable Worker Helper Name | Role | Phone | + +------+ + PCP | Unavailable | + +------+ + Encounter Details +--------+ + + + + | Date | Type | Department | Care Team | Description | +--------+ + + + + | 08/21/ | Hospital | [facility] | | | | 2006 | Encounter | MED CTR XRAY [address] | | | | | | [place] | | | | | | [place] [address] | | | | | | [phone] | | | +--------+ + + + [...]
--- OUTSIDE RECORDS SUMMARY | ~2019-07-21 | XMS | Encounter Summary ---
Demographics + + + | Address | [address] | | | [place] [address] | + + + | Home Phone | | + + + | Preferred Language | Unknown | + + + | Marital Status | Unknown | + + + | Mosque Affiliation | Unknown | + + + | Race | Unknown | + + + | Ethnic Group | Unknown | + + + Author + + + | Author | [facility] | | | and [place] | + + + | Organization | [facility] | | | and [place] | + + + | Address | Unknown | + + + | Phone | Unavailable | + + + Care Team Providers + +------+ + | Care Typists Supervisor Name | Role | Phone | + +------+ + PCP | Unavailable | + +------+ + Encounter Details +--------+ + + + + | Date | Type | Department | Care Team | Description | +--------+ + + + + | 09/13/ | Hospital | [facility] | | | | 2006 - | Encounter | MED CTR GENERIC IP | | | | | | CONV DEPT [address] | | | | 09/14/ | | [place], | | | | 2006 | | [place] [address] | | | | | | [phone] | | | +--------+ + + + [...]
--- OUTSIDE RECORDS SUMMARY | ~2019-07-21 | XMS | Encounter Summary ---
Demographics + + + | Address | [address] | | | [place] [address] | + + + | Home Phone | | + + + | Preferred Language | Unknown | + + + | Marital Status | Unknown | + + + | Yazdanism Affiliation | Unknown | + + + | Race | Unknown | + + + | Ethnic Group | Unknown | + + + Author + + + | Author | [facility] | | | and [place] | + + + | Organization | [facility] | | | and [place] | + + + | Address | Unknown | + + + | Phone | Unavailable | + + + Care Team Providers + +------+ + | Care Pit Supervisor Name | Role | Phone | + +------+ + PCP | Unavailable | + +------+ + Encounter Details +--------+ + + + + | Date | Type | Department | Care Team | Description | +--------+ + + + + | 09/11/ | Hospital | [facility] | | | | 2006 | Encounter | MED CTR XRAY [address] | | | | | | [place] | | | | | | [place] [address] | | | | | | [phone] | | | +--------+ + + + [...]
--- OUTSIDE RECORDS SUMMARY | ~2019-07-21 | XMS | Encounter Summary ---
Demographics + + + | Address | [address] | | | [place] [address] | + + + | Home Phone | | + + + | Preferred Language | Unknown | + + + | Marital Status | Unknown | + + + | Muslim Affiliation | Unknown | + + + | Race | Unknown | + + + | Ethnic Group | Unknown | + + + Author + + + | Author | [facility] | | | and [place] | + + + | Organization | [facility] | | | and [place] | + + + | Address | Unknown | + + + | Phone | Unavailable | + + + Care Team Providers + +------+ + | Care Long Term Care Social Worker Name | Role | Phone | + +------+ + PCP | Unavailable | + +------+ + Encounter Details +--------+ + + + + | Date | Type | Department | Care Team | Description | +--------+ + + + + | 09/23/ | Hospital | [facility] | | | | 2006 | Encounter | MED CTR XRAY [address] | | | | | | [place] | | | | | | [place] [address] | | | | | | [phone] | | | +--------+ + + + [...]
[~2019-07-21 07:33] MED LIST changes: +FLAGYL500 MG PO; +LEVAQUIN750 MG PO; +NORCO 7.5-3251 EACH PO; +REGLAN10 MG PO; +SUCRALFATE1 GM PO
--- OUTSIDE RECORDS SUMMARY | 2019-07-21 07:36 | XMS ---
PreManage Notification: SLIME FAIR Security Lozenge Dough Mixer Events No recent Security Events currently on file CRITERIA MET - [facility] - 2 Visits in 30 Days CARE PROVIDERS Daniele Crane MD PHONE: Unknown John has no Care Guidelines for this patient. EJem VISIT COUNT (12 MO.) 2 [facility] TOTAL 2 NOTE: Visits indicate total known visits. 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
[2019-07-21] MEDS ORDERED: KEFLEX500 MG PO (08:00)
== END 2019-07-21 08:07 | disposition home or self-care (01) ==
LOC: ED 07:33
DX: L03.012 Cellulitis of left finger (principal); Z87.891 Personal history of nicotine dependence; Z79.899 Other long term (current) drug therapy; Z79.82 Long term (current) use of aspirin
CPT/HCPCS: 99283; A9270

== ENCOUNTER 2019-07-23 09:18 | Emergency (ER) | payer OTHER, MEDICARE ==
[~2019-07-23] VITALS: Ht 177.8 cm; Wt 101.6 kg
[~2019-07-23 09:18] MED LIST changes: +KEFLEX500 MG PO
--- OUTSIDE RECORDS SUMMARY | 2019-07-23 09:22 | XMS ---
PreManage Notification: SLIME FAIR Security Blindstitch Lapel Padder Events No recent Security Events currently on file CRITERIA MET - [facility] - 2 Visits in 30 Days CARE PROVIDERS RAO CRANE [facility] 07/22/2019-Current PHONE: [phone] Rao Crane Treatment Current MD PHONE: Unknown John has no Care Guidelines for this patient. Giovanni VISIT COUNT (12 MO.) [address] [place] [address] TOTAL 3 NOTE: Visits indicate total known visits. 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
[2019-07-23] MEDS ORDERED: BACTRIM DS TAB1 EACH PO (11:45)
== END 2019-07-23 12:11 | disposition home or self-care (01) ==
LOC: ED 09:18
PROC: 0H9GXZZ Drainage of Left Hand Skin, External Approach (ICD-10-PCS; principal; 2019-07-23)
DX: L02.512 Cutaneous abscess of left hand (principal); Z87.891 Personal history of nicotine dependence; Z79.899 Other long term (current) drug therapy; Z79.82 Long term (current) use of aspirin
CPT/HCPCS: 10060; 99283-25

== ENCOUNTER 2019-07-28 13:29 | Emergency (ER) | payer OTHER, MEDICARE ==
[~2019-07-28] VITALS: Ht 177.8 cm; Wt 101.6 kg
[~2019-07-28 13:29] MED LIST changes: +BACTRIM DS TAB1 EACH PO
--- OUTSIDE RECORDS SUMMARY | 2019-07-28 13:32 | XMS ---
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 07/22/2019-Current PHONE: [phone] Rao Crane Treatment Current MD PHONE: Unknown John has no Care Guidelines for this patient. Giovanni VISIT COUNT (12 MO.) [address] [place] [address] TOTAL 4 NOTE: Visits indicate total known visits. ED/UCC VISIT TRACKING (12 MO.) 07/28/2019 13:30 [facility] [place] TYPE: Emergency COMPLAINT: - MEDICATION REACTION 07/23/2019 09:19 [facility] [place] TYPE: Emergency COMPLAINT: - HAND SWELLING/POSSIBLE INFECTION DIAGNOSES: - Other specified soft tissue disorders - Other termination clerk (current) drug therapy - Cutaneous abscess of left hand - Personal history of nicotine dependence - penitentiary (current) use of aspirin 07/21/2019 07:34 [facility] [place] TYPE: Emergency COMPLAINT: - POSS SPIDER BITE LEFT HAND DIAGNOSES: - Personal history of nicotine dependence - Cellulitis of left finger - Other specified soft tissue disorders - Other intermediate (current) drug therapy - buttermaker continuous churn (current) use of aspirin 06/25/2019 16:30 [facility] [place] TYPE: Emergency COMPLAINT: - LOWER ABD PAIN DIAGNOSES: - Other intermediate (current) drug therapy - Personal history of nicotine dependence - Dvtrcli of lg int w/o perforation or abscess w/o bleeding - buttermaker continuous churn (current) use of aspirin - Lower abdominal pain, unspecified INPATIENT VISIT TRACKING (12 MO.) No inpatient visits to display in this time frame [email or web address]
== END 2019-07-28 14:54 | disposition home or self-care (01) ==
LOC: ED 13:29
DX: B34.9 Viral infection, unspecified (principal); Z87.891 Personal history of nicotine dependence; Z79.899 Other long term (current) drug therapy; Z79.82 Long term (current) use of aspirin
CPT/HCPCS: 87502; 99283

== ENCOUNTER 2019-08-09 06:32 | Day surgery (SDC) | payer OTHER, MEDICARE ==
[~2019-08-09] VITALS: Ht 177.8 cm; Wt 101.6 kg
--- NOTE | ~2019-08-09 | OR ---
[facility] [address] [place], [place] [address] Draft DATE OF OPERATION: 08/09/2019 SURGEON: Annetta Morris MD PREOPERATIVE DIAGNOSIS: Recent episode of diverticulitis (resolved). Assess for neoplastic change. POSTOPERATIVE DIAGNOSIS: Diverticulosis. No evidence of neoplasm or polyps. PROCEDURE PERFORMED: Total colonoscopy to cecum. ANESTHESIA: Intravenous sedation with fentanyl 100 mcg and Versed 6 mg. INDICATION: This 64-year-old white man is a patient of Dr. Crane. He recently had an episode of acute diverticulitis requiring antibiotic therapy, but not hospitalization. A CT scan was undertaken confirming those findings. His last colonoscopy was in 2014, where he was noted to have diverticulosis but no polyps. He has no known family history of colon cancer. He is admitted at this time to undergo colonoscopy to assess for neoplastic change given interval of time since his last colonoscopy. He understands the risks of bleeding, infection, and perforation related to colonoscopy and wished to proceed. FINDINGS: The prep was excellent. Complete colonoscopy was undertaken to the cecum without question. There were numerous small and large diverticula of the sigmoid and left colon. There was no sign of polyp, colitis, or cancer. DESCRIPTION OF PROCEDURE: The patient was brought to the endoscopy suite, placed in lateral decubitus position, and given intravenous sedation to the point of slurred speech and nystagmus. Digital rectal examination was normal. An Olympus video colonoscope was passed in the rectum and manipulated throughout the colon noting numerous diverticula of the sigmoid and left colon. The scope was ultimately advanced to the cecum. The scope was withdrawn from that point. Careful examination upon withdrawal of scope showed no sign of polyps or colitis, only diverticular changes of the sigmoid and left colon. Retroflexed view of the rectum PATIENT NAME: SLIME FAIR OPERATIVE REPORT DATE OF : 53 REPORT #: [id number] PHYSICIAN: ANNETTA MORRIS MD PCP: RAO CRANE MD REPORT IS CONFIDENTIAL AND NOT TO BE RELEASED WITHOUT AUTHORIZATION [facility] [address] [facility] [place] [address] Draft showed some internal hemorrhoidal changes, but no other findings of concern. Scope was removed and the patient was taken to recovery room in good condition. CONCLUDING DIAGNOSIS: Diverticulosis. No evidence of neoplasm. PLAN: Recommend high-fiber diet. He will return to see us in 6 to 8 weeks. We will be checking on a solid food emptying study as he has had gastroparesis in the past and ongoing symptoms of bloating and upper abdominal symptoms. MD SKYE Orantes/BEVERLYL /[id number] cc: Rao Crane MD Copies: RAO CRANE MD ~ PATIENT NAME: SLIME FAIR OPERATIVE REPORT DATE OF : 53 REPORT #: [id number] PHYSICIAN: ANNETTA MORRIS MD PCP: RAO CRANE MD REPORT IS CONFIDENTIAL AND NOT TO BE RELEASED WITHOUT AUTHORIZATION
[2019-08-09] MEDS ORDERED: B COMPLEX WITH1 EACH PO (06:48)
--- NOTE | 2019-08-09 08:03 | NUR ---
PT ALERT, ORIENTED AND HAS HAD PREVIOUS SCOPES. PT HAD FEW QUESTIONS, HE DID MENTIONED THAT HIS WILL COME TO TAKE HIM HOME AFTER SHE RECEIVES A CALL FROM STAFF. PT REQUESTED PRAYER, WILL FOLLOW NEEDED
--- NOTE | 2019-08-09 08:26 | NUR ---
08/09/19 0826 Concepcion Collins 0805 PT ARRIVED IN PACU SLEEPY WITH NO C/O'S. 0815 AT BEDSIDE TALKING WITH PT. 0825 RESTING. REU.
== END 2019-08-09 08:45 | disposition home or self-care (01) ==
LOC: DS 06:32 → OPS 06:32 → DS 06:45 → OPS 06:45
PROVIDERS: Surgery
PROC: 0DJD8ZZ Inspection of Lower Intestinal Tract, Via Natural or Artificial Opening Endoscopic (ICD-10-PCS; principal; 2019-08-09 06:45)
DX: Z12.11 Encounter for screening for malignant neoplasm of colon (principal); K57.30 Diverticulosis of large intestine without perforation or abscess without bleeding; K21.0 Gastro-esophageal reflux disease with esophagitis; F17.200 Nicotine dependence, unspecified, uncomplicated; K64.8 Other hemorrhoids; Z88.5 Allergy status to narcotic agent; Z88.8 Allergy status to other drugs, medicaments and biological substances; Z88.2 Allergy status to sulfonamides; Z79.899 Other long term (current) drug therapy; Z98.890 Other specified postprocedural states
CPT/HCPCS: 99153; G0500; J2250; J3010

== ENCOUNTER 2020-05-14 23:31 | Emergency (ER) | payer BC, MEDICARE ==
[~2020-05-14] VITALS: Ht 180.3 cm; Wt 101.6 kg
[~2020-05-14 23:31] MED LIST changes: +B COMPLEX WITH1 EACH PO
[2020-05-15] MEDS ORDERED: AUGMENTIN 875-1 EACH PO (00:22)
[2020-05-15] MEDS ORDERED: NORCO 5-325 TA1 EACH PO (00:22)
--- NOTE | 2020-05-15 21:10 | PATH ---
[facility] [address] [place], [place] [address] Signed ORDERING PHYSICIAN: Kala Bobby MD PATIENT NAME: SLIME FAIR GENDER: Jesus : 1955 Prior History: No cases found. SPECIMEN(S): No Source Given MOLECULAR PATHOLOGY RESULTS: SARS-CoV-2 DETECTED ADDITIONAL NOTES.: The [place] Fusion SARS-CoV-2 Assay is a multiplex real-time PCR (RT-PCR) in vitro diagnostic test intended for the qualitative detection of RNA from SARS-CoV-2 from individuals who meet COVID-19 clinical and/or epidemiological criteria. In general, SARS-CoV-2 RNA can be detected during the acute phase of infection. Positive results indicate the presence of SARS-CoV-2 RNA. Clinical correlation with patient history and other diagnostic information is necessary to determine patient infection status. Positive results do not rule out bacterial infection or co-infection with other viruses. Negative results do not preclude SARS-CoV-2 infection and should not be used as the sole basis for patient management decisions. Negative results must be combined with other clinical observations, patient history, and epidemiological information. The [place] Fusion SARS-CoV-2 Assay is not yet approved or cleared by the [place] FDA. When there are no FDA-approved or cleared tests available, and other criteria are met, FDA can make tests available under an emergency access mechanism called an Emergency Use Authorization (EUA). The EUA for this test is supported by the [place] of Health and Human Service's (HHS's) declaration that circumstances exist to justify the emergency use of in vitro diagnostics for the detection and/or diagnosis of the virus that causes COVID-19. This EUA will remain in effect for the duration of the COVID-19 declaration justifying emergency of IVDs, unless it is terminated or revoked by FDA, after which the test may no longer be used. The [place] Fusion SARS-CoV-2 Assay is for use only under EUA PATIENT NAME: SLIME FAIR PATHOLOGY DATE OF : 53 REPORT #: [id number] PHYSICIAN: FELICITAS CONRAD PCP: RAO MORROW MD REPORT IS CONFIDENTIAL AND NOT TO BE RELEASED WITHOUT AUTHORIZATION [facility] [address] [place] [address] Signed in [place] laboratories certified under the Clinical Laboratory Improvement Amendments of 1988 (CLIA) to perform high complexity tests. [facility] is certified under CLIA to perform high complexity clinical laboratory testing. PERFORMING LABORATORY.: Molecular testing was performed by [facility] [place] [address] (Operations And Maintenance Technican: Tim Mondragon D.O.; CLIA#: [id number]) Diagnostician: System Interface Pathologist Electronically Signed 05/15/2020 Copies: ~ PATIENT NAME: SLIME FAIR PATHOLOGY DATE OF : 53 REPORT #: [id number] PHYSICIAN: FELICITAS CONRAD PCP: RAO MORROW MD REPORT IS CONFIDENTIAL AND NOT TO BE RELEASED WITHOUT AUTHORIZATION
== END 2020-05-15 00:40 | disposition home or self-care (01) ==
LOC: ED 23:31
DX: U07.1 COVID-19 (principal); J01.90 Acute sinusitis, unspecified; B34.9 Viral infection, unspecified; Z88.2 Allergy status to sulfonamides; Z79.899 Other long term (current) drug therapy; Z79.82 Long term (current) use of aspirin
CPT/HCPCS: 99284; C9803

== ENCOUNTER 2020-05-19 15:02 | Emergency (ER) | payer BC, MEDICARE ==
[~2020-05-19] VITALS: Ht 180.3 cm; Wt 101.6 kg
[~2020-05-19 15:02] MED LIST changes: +AUGMENTIN 875-1 EACH PO; +NORCO 5-325 TA1 EACH PO
--- OUTSIDE RECORDS SUMMARY | 2020-05-19 15:04 | XMS ---
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 Care History Medical/Surgical 07/29/2019 [facility] - PATIENT WAS REFERRED BY DR MACKEY TO PCP -DR MORROW FOR A FOLLOW UP APT- - PATIENT IS FOLLOWING UP WITH PCP DR MORROW TODAY 07/29/2019 @ 11:30. E.D. VISIT COUNT (12 MO.) 6 [facility] TOTAL 6 NOTE: Visits indicate total known visits. ED/UCC VISIT TRACKING (12 MO.) 05/19/2020 15:03 [facility] TYPE: Emergency COMPLAINT: - SOB, HARD TO BREATH 05/14/2020 23:32 [facility] TYPE: Emergency COMPLAINT: - COUGH/HEADACHE DIAGNOSES: - Headache, unspecified - Acute sinusitis, unspecified - COVID-19 - Allergy status to sulfonamides - Viral infection, unspecified - extermination supervisor (current) use of aspirin - Other intermediate (current) drug therapy 07/28/2019 13:30 [facility] [place] TYPE: Emergency COMPLAINT: - MEDICATION REACTION DIAGNOSES: - Viral infection, unspecified - Other intermediate (current) drug therapy - Fever, unspecified - Personal history of nicotine dependence - [facility] (current) use of aspirin 07/23/2019 09:19 [facility] [place] TYPE: Emergency COMPLAINT: - HAND SWELLING/POSSIBLE INFECTION DIAGNOSES: - Other specified soft tissue disorders - Other joint terminal attack controller (current) drug therapy - Cutaneous abscess of left hand - Personal history of nicotine dependence - [facility] (current) use of aspirin 07/21/2019 07:34 [facility] [place] TYPE: Emergency COMPLAINT: - POSS SPIDER BITE LEFT HAND DIAGNOSES: - Personal history of nicotine dependence - Cellulitis of left finger - Other specified soft tissue disorders - Other joint terminal attack controller (current) drug therapy - [facility] (current) use of aspirin 06/25/2019 16:30 [facility] [place] TYPE: Emergency COMPLAINT: - LOWER ABD PAIN DIAGNOSES: - Other joint terminal attack controller (current) drug therapy - Personal history of nicotine dependence - Diverticulitis of large intestine without perforation or abscess without bleeding - [facility] (current) use of aspirin - Lower abdominal pain, unspecified INPATIENT VISIT TRACKING (12 MO.) No inpatient visits to display in this time frame [email or web address]
[2020-05-19] MEDS ORDERED: PROMETHAZINE-C473 ML PO (17:22)
[2020-05-19] MEDS ORDERED: VENTOLIN HFA18 GM INH (17:22)
--- NOTE | 2020-05-20 10:59 | EKG ---
[facility] [address] [facility] [place] [address] Signed Normal sinus rhythm Left axis deviation Pulmonary disease pattern ST \T\ T wave abnormality, consider anterior ischemia Abnormal ECG When compared with ECG of 12-JUL-2016 14:06, T wave inversion now evident in Anterior leads Confirmed by MAHNAZ COMER DO ([id number]) on 05/20/2020 10:59:19 AM Electronically Signed By: MAHNAZ COMER DO 05/20/20 1059 PATIENT NAME: SLIME FAIR DESIRAE Electrocardiogram DATE OF : 53 PHYSICIAN: MAHNAZ COMER DO REPORT #: [id number] REPORT IS CONFIDENTIAL AND NOT TO BE RELEASED WITHOUT AUTHORIZATION
== END 2020-05-19 18:00 | disposition home or self-care (01) ==
LOC: ED 15:02
DX: U07.1 COVID-19 (principal); J12.89 Other viral pneumonia; Z87.891 Personal history of nicotine dependence; Z88.2 Allergy status to sulfonamides; Z79.899 Other long term (current) drug therapy; Z79.82 Long term (current) use of aspirin
CPT/HCPCS: 71045; 80053; 83605; 83880; 84484; 85025; 93005; 93010; 99285-25; A9270

== ENCOUNTER 2020-05-21 05:26 | Inpatient (IN) | payer MEDICARE, BC ==
[~2020-05-21] VITALS: Ht 180.3 cm; Wt 101.5 kg
[~2020-05-21 05:26] MED LIST changes: +PROMETHAZINE-C473 ML PO; +VENTOLIN HFA18 GM INH
--- OUTSIDE RECORDS SUMMARY | 2020-05-21 05:30 | XMS ---
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 Care History Medical/Surgical 07/29/2019 [facility] - PATIENT WAS REFERRED BY DR MACKEY TO PCP -DR MORROW FOR A FOLLOW UP APT- - PATIENT IS FOLLOWING UP WITH PCP DR MORROW TODAY 07/29/2019 @ 11:30. E.D. VISIT COUNT (12 MO.) 7 [facility] TOTAL 7 NOTE: Visits indicate total known visits. ED/UCC VISIT TRACKING (12 MO.) 05/21/2020 05:27 [facility] TYPE: Emergency COMPLAINT: - SOB 05/19/2020 15:03 [facility] TYPE: Emergency COMPLAINT: - SOB, HARD TO BREATH 05/14/2020 23:32 [facility] TYPE: Emergency COMPLAINT: - COUGH/HEADACHE DIAGNOSES: - Headache, unspecified - Acute sinusitis, unspecified - COVID-19 - Allergy status to sulfonamides - Viral infection, unspecified - jail (current) use of aspirin - Other intermediate card tender (current) drug therapy 07/28/2019 13:30 [facility] TYPE: Emergency COMPLAINT: - MEDICATION REACTION DIAGNOSES: - Viral infection, unspecified - Other intermediate card tender (current) drug therapy - Fever, unspecified - Personal history of nicotine dependence - jail (current) use of aspirin 07/23/2019 09:19 [facility] [place] TYPE: Emergency COMPLAINT: - HAND SWELLING/POSSIBLE INFECTION DIAGNOSES: - Other specified soft tissue disorders - Other care home (current) drug therapy - Cutaneous abscess of left hand - Personal history of nicotine dependence - jail (current) use of aspirin 07/21/2019 07:34 [facility] [place] TYPE: Emergency COMPLAINT: - POSS SPIDER BITE LEFT HAND DIAGNOSES: - Personal history of nicotine dependence - Cellulitis of left finger - Other specified soft tissue disorders - Other intermediate card tender (current) drug therapy - jail (current) use of aspirin 06/25/2019 16:30 [facility] [place] TYPE: Emergency COMPLAINT: - LOWER ABD PAIN DIAGNOSES: - Other intermediate card tender (current) drug therapy - Personal history of nicotine dependence - Diverticulitis of large intestine without perforation or abscess without bleeding - termite control representative (current) use of aspirin - Lower abdominal pain, unspecified INPATIENT VISIT TRACKING (12 MO.) No inpatient visits to display in this time frame [email or web address]
--- NOTE | 2020-05-21 09:45 | NUR ---
CALLED FOR UPDATE AND TO EXPRESS CONCERNS OF HIATAL HERNIA, REPORTING HER SUSPISSION THIS ADMISSION AND SYMPTOMS AND D/T THE HERNIA AND NOT COVID. REQUESTING A CT SCAN BE COMPLETED TO RULE THIS OUT THE CAUSE. REQUESTING I INFORM THE DOCOTOR OF THIS INFORMATION. DR COMER NOTIFIED AND EXPLAINED REASON FOR ADMISSION WAS HYPOXIA WHICH IS A SYMPTOM OF COVID. IS NOT CONCERNED ABOUT HIATAL HERNIA AND DOES NOT BELIEVE A CT SCAN WOULD CHANGE THE COURSE OF ACTION AT THIS TIME.
--- NOTE | 2020-05-21 09:59 | NUR ---
PT ARRIVED TO FLOOR VIA STRETCHER. TRANSFERED INDEPENDENTLY TO BED. 2L NC IN PLACE. VITALS TAKEN AND STABLE. DR COMER IN TO ASSESS PT. LUNGS WITH CRACKLES ON RIGHT LOBES AND LLL. HEART SOUNDS REGULAR. PAIN 3/10 ONLY WITH COUGHING. PT IS ALERT AND ORIENTED.
--- NOTE | 2020-05-21 12:12 | NUR ---
PT SLEEPING UP IN CHAIR. IN TO ADMINSTER PROTONIX. PT WIT H1 BM AND 1 UNMEASURED VOID. INSTRUCTED PT ON PRONING. PT REPORTS INABILITY TO PRONE ON STOMACH D/T HYATAL HERNIA SO PT ASSISTED TO RIGHT SIDE LYING.
--- NOTE | 2020-05-21 14:04 | NUR ---
PT COMPLAINING OF COUGH. DR COMER NOTIFIED NEW ORDERS RECIEVED. PT INDEPENDENTLY CHANGED TO RIGHT SIDE LYING. 2L NCSTILL IN PLACE. CALL LIGHT IN REACH.
--- NOTE | 2020-05-21 15:53 | NUR ---
PT DENEIS HUNGER.EARLY DINNER CALLED. PT SITH SATURATION AT 88% WHILE LYING ON LEFT SIDE. PT TOLD TO REPOSITION TO RIGHT SIDE. SATURATIONS INCREASED TO 95% 2L NC. PT DENEIS PAIN OR SOB. CALL LIGHT IN REACH.
--- NOTE | 2020-05-21 18:23 | NUR ---
IN TO ROUND ON PT. PERSONAL ITEMS FROM PET WALKER GIVEN. ON FACETIME. VITALS TAKEN AND STABLE. 2L NC IN PLACE. PT REQUESTING TESSELON PERLES BE GIVEN BEFORE BED. WATER REFRESHED. PT SITTING UP IN CHAIR.
--- NOTE | 2020-05-21 19:40 | NUR ---
CALL LIGHT ON. pt REQUESTED ASSISTANCE TO PREPARE TO BATH. TELE OFF AT THIS TIME. pt REPORTS COUGH, REQUESTED PRN WHEN DONE WITH BATH. ALL TIMES PROVIDED FOR PM CARE. CALL LIGHT WITHIN REACH.
--- NOTE | 2020-05-21 21:10 | NUR ---
IN TO GIVE MEDICATIONS. pt REPORTED THAT WHEN HE WAS BATHING HE FELT "LOW ON O2" CURRENTLY HAS 2L O2 SATS 89%. INCREASED O2 AND ENCOURAGED pt TO REST ON SIDE HE CANNOT PRONE. AFTER A FEW MINUTES OF RECOVERY OXYGEN TITRATED TO 3L VIA NC. ASSESSMENT DONE. VITALS AND I&O RECORDED. PROVIDED FRESH WATER. MEDICATIONS GIVEN (SEE MAR). CALL LIGHT WITHIN REACH.
--- NOTE | 2020-05-21 22:57 | NUR ---
ROUNDED ON pt. RESTING IN BED WITH EYES CLOSED, ON RIGHT SIDE. CALL LIGHT WITHIN REACH.
--- NOTE | 2020-05-22 00:58 | NUR ---
ASSUMED CARE OF PT, REPORT RECEIVED FROM CALEB KOROMA. PT RESTING IN BED ON RIGHT SIDE SPO2 95% ON 3L/O2.
--- NOTE | 2020-05-22 02:00 | NUR ---
PT RESTING IN PRONE POSITION, O2 IN PLACE. SPO2 REMAINS 94%.
--- NOTE | 2020-05-22 04:30 | NUR ---
PT UP, SITTING IN CHAIR. ASSESSMENT DONE. DENIES SOB OR PAIN. LABS DRAWN.
--- NOTE | 2020-05-22 06:30 | NUR ---
PT REMAINS UP IN CHAIR WITH O2 IN PLACE
--- NOTE | 2020-05-22 07:44 | NUR ---
REPORT RECEIVED FROM NIGHTSHIFT RN, WILL CONTINUE PLAN OF CARE.
--- NOTE | 2020-05-22 08:22 | NUR ---
Spoke with pt for CM assessment. He states he lives in [place] with his and she will assist him as needed on dc. States he is active and no issues to get into home. C/o of difficulty speaking due to irritation in throat and some sob. He denies needs togo home, we discussed possibility of 02 on dc and I will assists him if needed.
--- NOTE | 2020-05-22 09:22 | NUR ---
PT SITTING AT BEDSIDE CHAIR AWAKE AND ALERT. PT STATES THAT HE FEELS WELL AND HAS NO PAIN OR SHORTNESS OF BREATH AT THIS TIME. PT RECEIVING IV REMDESIVIR AT ORDERED RATE. PT EDUCATED ON MEDICATIONS AND MEDICATIONS ADMINISTERED ORDERED. PT REPORTS NO FURTHER NEEDS AT THIS TIME AND IS EATING HIS BREAKFAST. PT STATES HE IS ALSO USING HIS ACAPELLA WHEN POSSIBLE WHICH HE STATES IS HOURLY. CALL LIGHT WITHIN REACH, WILL CONTINUE PLAN OF CARE.
--- NOTE | 2020-05-22 10:08 | NUR ---
PT SITTING AT BEDSIDE CHAIR. PT REPORTS NO DIFFICULTY BREATHING OR SHORTNESS OF BREATH. PT HAS BEEN TITRATED DOWN TO 2L O2 VIA NC AT 0930. IV REMDESIVIR COMPLETE AND PT IS NOW SALINE LOCKED. PT REPORTS NO FURTHER NEEDS AT THIS TIME, WILL CONTINUE PLAN OF CARE.
--- NOTE | 2020-05-22 12:12 | NUR ---
PT SITTING AT BEDSIDE CHAIR ALERT AND ORIENTED. PT HAS NO COMPLAINTS OF PAIN OR DIFFICULTY BREATHING AND IS CURRENTLY ON ROOM AIR. PT STATED HE TOOK OFF HIS NASAL CANNULA HE FELT HE DIDNT NEED IT. HE STATED HE WOULD PUT IT BACK ON IF HE FELT SHORT OF BREATH. PT. REPORTS HAVING A BOUT OF DIARRHEA AND STATED HED LIKE SOMETHING LIKE "ZINC OXIDE" FOR IRRITATION FROM HIS DIARRHEA. PT REPORTS NO FURTHER NEEDS ASIDE FROM THAT. PT AWAKE, ALERT, SITTING IN CHAIR, CALL LIGHT WITHIN REACH, SALINE LOCKED. WILL CONTINUE PLAN OF CARE.
--- NOTE | 2020-05-22 13:34 | NUR ---
UNABLE TO VISIT IN RM WITH PT DUE TO PREAUTIONS, BUT WAS ABLE TO CONNECT VIA PHONE. MUCH IMPROVED, ON RM O2. PT REQUESTED PRAYER, WILL FOLLOW NEEDED
--- NOTE | 2020-05-22 14:00 | NUR ---
PT SLEEPING AT THIS TIME. PT IN BED LYING ON R SIDE. PRN DESETIN HAS BEEN ORDERED AND IS IN PT ROOM. WILL CONTINUE PLAN OF CARE.
--- NOTE | 2020-05-22 16:25 | NUR ---
PT SITTING IN BEDSIDE CHAIR. PT WAS PUT ON 3L O2 VIA NC DUE TO SPO2 AROUND 88. PT REPORTED THAT HE WAS USING ACAPELLA AND STARTED TO HAVE A COUGHING FIT FROM IT. PT NOW HAS AN SPO2 OF 91% ON 3L. PT ALSO INSTRUCTED ON HOW TO USE INCENTIVE SPIROMETER. PRN MEDICATIONS FOR COUGHING ADMINISTERED (SEE MAR), AND PRN DESITIN PROVIDED WELL. PT REPORTS NO PAIN AT THIS TIME AND REPORTS NO FURTHER NEEDS. WILL CONTINUE PLAN OF CARE. CALL LIGHT WITHIN REACH.
--- NOTE | 2020-05-22 19:30 | NUR ---
REPORT RECEIVED FROM DAY SHIFT RN. PT UP IN CHAIR AND ABULATING AROUND ROOM, O2 AT 2L/NC AND SPO2 95%. DENIES NEEDS AT THIS TIME.
--- NOTE | 2020-05-22 21:10 | NUR ---
IN TO DO ASSESSMENT AND HS MEDS. PT DENIES NEEDS AT THIS TIME. LUNGS WITH FEW CRACKLES IN BASES, PT REPORTS HE HAS JUST DONE HIS IS. DENIES SOB OR PAIN.
--- NOTE | 2020-05-22 22:00 | NUR ---
PT TOOK OFF HIS O2 TO MOVE AROUND IN HIS ROOM DURING TRANSFER, ROOM AIR SATS 89% WITH ACTIVITY. PT SEEMS SLIGHTLY SOB WELL. O2 BACK ON AND SATS UP TO 94%.
--- NOTE | 2020-05-22 22:10 | NUR ---
PT TRANSFERRED TO MED SURG ROOM 116. REPORT GIVEN TO WINIFRED KORMOA.
--- NOTE | 2020-05-22 23:33 | NUR ---
PT ARRIVED FROM CCU AT ABOUT 2200. PT AT 2315 HAD HIS O2 INCREASED TO 4L NC. WILL CONTINUE TO MONITOR.
--- NOTE | 2020-05-23 01:34 | NUR ---
PT SLEEPING IN BED. NO NEW CONCERNS WERE NOTED.
--- NOTE | 2020-05-23 03:30 | NUR ---
PT STILL SLEEPING. NO NEW CONCERNS NOTED OVERALL.
--- NOTE | 2020-05-23 06:18 | NUR ---
PT ARRIVED ON MS AT ABOUT 2200 FROM CCU. PT OVERALL HAD AN UNEVENTFUL NIGHT. PT SLEPT MOST OF THE NIGHT. ALL LOBES ARE DIMINISHED AND THE BASES HAVE SOME CRACKLES PRESENT. PT WAS PUT ON 3L O2 BEFORE BED TIME. THIS MORNING. PT HAD TO BE PUT ON 5L O2 NC DUE TO LOW O2 SATS FROM 87%- 90%. O2 LEVELS HAVE REMAINED WDL SO FAR. PT DENIES SOB. NO OTHER CONCERNS WERE NOTED THIS SHIFT. URINE OUTPUT IS ADEUQATE, V/S ARE OTHERWISE WDL.
--- NOTE | 2020-05-23 07:48 | NUR ---
THIS RN RECEIVED REPORT FROM DONY KOROMA. PT SITTING UP TO THE CHAIR ON THE CPOX, SATING AT 98% ON 5L. PT STATES THAT HE IS IN NEED OF A DIFFERENT MED FOR GERD AND A NASAL SPRAY FOR DRY NASAL. THIS RN DISCUSSED WITH PT FROM THE DOOR THAT SHE WILL BRING IN A BUBBLER FOR O2
--- NOTE | 2020-05-23 09:35 | NUR ---
THIS RN IN PTS ROOM TO GIVE PT HIS MORNING MEDS AND DO MORNING ASSESSMENT. PT STATES THAT HE IS NO NEED OF ANYTHING AT THIS TIME. PT SATING WELL AT 100% ON 3L NC AT THIS TIME. PT STATES THAT HE IS FEELING BETTER SINCE HE WAS ADMITTED TO THE HOSPITAL
--- NOTE | 2020-05-23 11:10 | NUR ---
THIS RN OPENED DOOR TO DISCUSS WITH PT TO HAVE HIS COUGH AND DEEP BREATHE, THIS RN ALSO ENCOURGED PT TO US HIS IS. PT COMPLAINT WITH CARE. O2 SATS AT 90% ON 2L WITH BUBBLER
--- NOTE | 2020-05-23 11:36 | NUR ---
THIS RN IN PTS ROOM TO TURN UP PTS OXYGEN. PT AFTER SHOWER WAS SATING BETWEEN 86-89% ON 2L NC WITH A BUBBLER. THIS RN TURNED UP PTS O2 TO 4L NC WITH BUBBLER. TO GET PT TO SAT AT 92%.
[2020-05-23] MEDS ORDERED: PREDNISOLONE ACE5 ML OU (12:44)
[2020-05-23] MEDS ORDERED: CEFUROXIME500 MG PO (12:45)
--- NOTE | 2020-05-23 13:30 | NUR ---
THIS RN IN TO CHECK ON PT. PT RESTING IN BED AND APPEARS TO BE PRONING TO THE RIGHT SIDE AT THIS TIME. PTS DROPPED OFF HIS PRILOSEC AND NASAL SPRAY THAT HE ASKED FOR. PT UP AND WALKING ROOM WITH 4L NC AND DOING WELL WITH NO RESPIRATORY DISTRESS. THIS RN CALLED CURLY THE PHARMACIST TO VERIFY PTS HOME MEDS. DR.RASCH SERRANO WITH PTS HOME MEDS THIS RN PROVIDED PT WITH STERILE WATER TO BE ABLE TO RINSE HIS SINUSES OUT.
--- NOTE | 2020-05-23 14:01 | NUR ---
CALLED PT TO VISIT. CANNOT VISIT IN PERSON DUE TO PRECAUTIONS. NO ANSWER WILL TRY AGAIN
--- NOTE | 2020-05-23 14:02 | NUR ---
MED REC COMPLETE
--- NOTE | 2020-05-23 16:06 | NUR ---
No change in plan for dc.
--- NOTE | 2020-05-23 17:45 | NUR ---
THIS RN POKED HER HEAD IN TO CHECK ON PT. PT STATES THAT HE IS DOING WELL AND STATES THAT HIS COUGH IS DOING GREAT AND DOESN'T NEED ANYTHING FROM THIS RN AT THIS TIME
--- NOTE | 2020-05-23 19:20 | NUR ---
REPORT RECEIVED FROM SUE KOROMA. ON TELE #6, SINUS KRISTY AT THIS TIME. ON 4 L O2 NC. WILL RETURN TO ASSESS.
--- NOTE | 2020-05-23 21:02 | NUR ---
SCHEDULED MEDICATIONS ADMINISTERED, PT'S HOME MEDS IN ROOM. PRN ROBITUSSIN WITH CODEINE ADMINISTERED. PATIENT REFUSED LOVENOX INJECTION, DISCUSSED RISKS OF REFUSAL AND BENEFITS OF MEDICATION, PT DECISION UNCHANGED. ASSESSMENT COMPLETE, PAPR USED--UNABLE TO AUSCULTATE. URINAL EMPTIED, VITALS AND I\O'S COMPLETE. RT IN ROOM FINISHING CBT. WATER REFRESHED. TELE BATTERY REPLACED. PT STATES NO OTHER NEEDS AT THIS TIME, CALL LIGHT IN REACH.
--- NOTE | 2020-05-23 23:29 | NUR ---
ROUNDED ON PATIENT, IN BED WITH LIGHTS OFF. TELE IN PLACE, SINUS KRISTY. SPO2 96%, HR 60. WILL CONTINUE TO MONITOR.
--- NOTE | 2020-05-24 01:47 | NUR ---
ROUNDED ON PATIENT. TELE IN PLACE, SPO2 95%, PULSE 44. NO APPARENT NEEDS AT THIS TIME. WILL CONTINUE TO MONITOR.
--- NOTE | 2020-05-24 03:43 | NUR ---
ROUNDED ON PATIENT. TELE IN PLACE, HR 44, SPO2 96. NO APPARENT NEEDS AT THIS TIME. WILL CONTINUE TO MONITOR.
--- NOTE | 2020-05-24 05:30 | NUR ---
THIS RN IN ROOM TO DRAW LABS. VITALS AND I/O'S COMPLETE. ASSESSMENT COMPLETE, UNABLE TO AUSCULTATE DUE TO PAPR. TELE IN PLACE, SPO2 92%, HR 49, RR 16. PATIENT STATES NO SOB. PT ONLY COMPLAINT IS CHRONIC EPIGASTRIC DISCOMFORT.WATER REFRESHED. CALL LIGHT IN REACH, WILL CONT TO MONITOR.
--- NOTE | 2020-05-24 06:18 | NUR ---
PAPR IN USE FOR ASSESSMENTS, UNABLE TO AUSCULTATE. TELE IN PLACE, SPO2 95%, HR 48, RR 16-18. PATIENT REPORTS NO SOB, STATES "ONLY ISSUE" IS CHRONIC EPIGASTRIC PAIN. VSS, A+O. ON 4L O2 NC. INDEPENDENT IN ROOM. CALLS APPROPRIATELY.
--- NOTE | 2020-05-24 07:32 | NUR ---
THIS RN RECIEVED REPORT FROM LANA KOROMA. PT APPEARS TO BE RESTING AT THIS TIME. PT PRONING ON HIS RIGHT SIDE AT THIS TIME
--- NOTE | 2020-05-24 09:30 | NUR ---
THIS RN IN PTS ROOM TO GIVE PT HIS MORNING MEDS AND DO MORNING ASSESSMET. PT DOING WELL ON THE 4L NC WITH BUBBLER. PT STATES THAT HE IS FEELING BETTER. PT STATED THAT HE DIDN'T FEEL LIKE HE NEEDED THE ENOXAPARIN. THIS RN EDUCATED PT THAT HE PROBALY ISN'T MOVING MUCH HE NORMALLY DOES AT HOME AND THAT COVID HAS CLOTTING PROPERTIES, PT AGREEABLE TO TAKE MED AFTER EDUCATION FROM THIS RN
--- NOTE | 2020-05-24 13:53 | NUR ---
TRIED TO VISIT ULYSSES PT BY PHONE. NO ANSWER, LEFT MSG. I DID CALL AND CONNECT WITH PT'S . SHE IS PLEASED WITH HIS IMPROVING HEALTH AND CARE THAT HE IS RECEIVING. WILL CONTINUE TO FOLLOW
--- NOTE | 2020-05-24 14:15 | NUR ---
this rn to check on pt. pt appears to be resting at this time with respirations noted and pt is on tele cpox
--- NOTE | 2020-05-24 15:54 | NUR ---
Updated from RN, pt cont. on sob. No change in plan for dc when symtoms resolve.
--- NOTE | 2020-05-24 18:45 | NUR ---
PATIENT UP IN ROOM, NASAL CANNULA OFF, PATIENT WATCHING TELE MONITOR AND STATED HIS O2 WAS STEADY HOLDING AT 94-95 ON ROOM AIR FOR THE LAST 20 MINUTES. THIS SCRATCH POLISHER HAD PATIENT PUT CANNULA BACK ON, ESPECIALLY SINCE HE TENDS TO DIP INTO THE 80'S. RN NOTIFIED, NOT SURE IF PATIENT HAS "TESTED" HIMSELF LIKE THIS BEFORE WHILE WALKINGIN HIS ROOM. VITALS AND I&OS CHARTED.
--- NOTE | 2020-05-24 19:00 | NUR ---
Pt sitting up in chair. no s/s of sob or labored breathing. 2L NC in place. Shift report recieved by RN. Call light in reach, no further concerns at this time.
--- NOTE | 2020-05-24 20:15 | NUR ---
Pt sitting up at the side of bed. shows no s/s of SOB or labored breathing. Denies pain and nausea. PRN cough medicine per pt request. Assessment complete. Did not assess lung and heart sounds due to PAPR. I and O's complete. VS stable. 4L o2 NC titrated down to 3L NC. Call light within reach, no further needs or concerns.
--- NOTE | 2020-05-24 22:49 | NUR ---
PT LYING IN BED. EYES CLOSED. DENIED PAIN AND NAUSEA. BATTERY CHANGED IN TELE. O2 AND RR STABLE. 3L NC O2 SAT 98%. HR SINUS KRISTY OF MID UPPER 40'S. NO S/S OF SOB OR LABORED BREATHING. CALL LIGHT IN REACH. NO FURTHER CONCERNS.
--- NOTE | 2020-05-25 00:38 | NUR ---
PT AWAKE AND RECENTLY VOIDED VIA URINAL. DENIES NEEDS, INDEPENDENT IN ROOM. CALL LIGHT IN REACH.
--- NOTE | 2020-05-25 02:00 | NUR ---
PT LYING IN BED. EYES CLOSED. I AND O'S COMPLETE. NO S/S OF SOB OR LABORED BREATHING. CALL LIGHT IN REACH, NO FURTHER CONCERNS. URINAL COMPLETE. ASSESSMENT COMPLETE.
--- NOTE | 2020-05-25 02:08 | NUR ---
PT CALLED, ASKED ABOUT TURNING OFF PC MONITOR TO DARKEN ROOM, ASST PT WITH TASK, NO FURHTER NEED AT THIS TIME
--- NOTE | 2020-05-25 04:30 | NUR ---
PT LYING IN BED. EYES CLOSED. RR WNL AND UNLABORED BREATHING NOTED. APPEARS TO BE SLEEPING. CALL LIGHT IN REACH.
--- NOTE | 2020-05-25 04:51 | NUR ---
PT INDEPENDENT IN ROOM. RESTED THROUGHOUT THE NIGHT. REGULAR DIET, TOLERATED WELL, NO NAUSEA REPORTED. IV SALINE LOCKED. VOIDING QS, NO BM. EDUCATED ON PRONING THROUGHOUT SHIFT. CALLS APPROPRIATELY. PT ON TELE. VS STABLE.
--- NOTE | 2020-05-25 05:45 | NUR ---
PT LYING IN BED. LAB DRAW COMPLETE. I AND O'S COMPLETE. NO LABORED BREATHING, RR WNL. O2 SAT 3L NC. CALL LIGHT WITHIN REACH. NO FURTHER NEEDS.
--- NOTE | 2020-05-25 08:10 | NUR ---
Pt up in chair this morning. RT in with pt and have taken off 3L NC. Pt now on room air sating 94-95%. Reports he took his O2 off last night to walk to the bathroom and did not desat, says he was looking at the pulse ox through his stockholder. Denies SOB with exertion, pt breathing appears unlabored, no accessory muscle use. Will leave O2 off and continue to monitor. Pt has crackles in bases, clear in BUL (lung sounds per RT, RN in PAPR). Lovenox refused by pt, says he thinks he walks around enough to not need it. This RN educated pt about the increased risk for clotting with COVID19. Pt says he doesn't think he has COVID anymore, just pneumonia. Pt educated that his viral pneumonia was highly likely the result of him being covid positive, and he can have symptoms and still be positive longer than two weeks. Pt verbalized understanding but says he still has his "own opinions" about his illness. Says he would like to go home by the end of the day if possible. This RN responded that she will notify MD of his wishes. Pt has no other complaints or needs at this time. Call light within reach.
[2020-05-25] MEDS ORDERED: DECADRON6 MG PO (10:12)
--- NOTE | 2020-05-25 10:41 | NUR ---
SITTING UP IN RECLINER. RESPIRATIONS EVEN AND UNLABORED. DENIES ANY SHORTNESS OF BREATH. VITALS OBTAINED.
--- NOTE | 2020-05-25 11:20 | NUR ---
DC INSTRUCTIONS REVIEWED WITH PT. PT VERBALIZED UNDERSTANDING. 20 G IV REMOVED FROM LEFT WRIST, WNL. PT CALLED FOR PICK-UP. AWAITING ARRIVAL.
--- NOTE | 2020-05-25 13:11 | NUR ---
TALKED WITH PT BY PHONE-EXCITED TO DC. FRANCI ISSA HAS GONE OVER DISCHARGE INSTRUCTIONS AND PT HAS CALLED HIS . WAITING NOW FOR HER TO ARRIVE. GAVE ENCOURAGEMENT AND BLESSING
== END 2020-05-25 12:50 | disposition home or self-care (01) | DRG 177 ==
LOC: ED 05:26 → CCU 05:28 → MS 10:13 → CCU 10:14 → MS 05-22 22:00
PROVIDERS: ADMIT Student in an Organized Health Care Education/Training Program; ATTEND Student in an Organized Health Care Education/Training Program
PROC: XW033E5 Introduction of Remdesivir Anti-infective into Peripheral Vein, Percutaneous Approach, New Technology Group 5 (ICD-10-PCS; principal; 2020-05-21)
PROC: XW033E5 Introduction of Remdesivir Anti-infective into Peripheral Vein, Percutaneous Approach, New Technology Group 5 (ICD-10-PCS; 2020-05-22)
PROC: XW033E5 Introduction of Remdesivir Anti-infective into Peripheral Vein, Percutaneous Approach, New Technology Group 5 (ICD-10-PCS; 2020-05-23)
PROC: XW033E5 Introduction of Remdesivir Anti-infective into Peripheral Vein, Percutaneous Approach, New Technology Group 5 (ICD-10-PCS; 2020-05-24)
PROC: XW033E5 Introduction of Remdesivir Anti-infective into Peripheral Vein, Percutaneous Approach, New Technology Group 5 (ICD-10-PCS; 2020-05-25)
DX: U07.1 COVID-19 (principal); J12.89 Other viral pneumonia; J96.01 Acute respiratory failure with hypoxia; K21.9 Gastro-esophageal reflux disease without esophagitis; G43.809 Other migraine, not intractable, without status migrainosus; K44.9 Diaphragmatic hernia without obstruction or gangrene; Z87.891 Personal history of nicotine dependence; Z79.899 Other long term (current) drug therapy; Z88.2 Allergy status to sulfonamides
CPT/HCPCS: 71045; 80053; 85025; 87070; 87205; 94667; 94668; 94760; 99285-25; J1100; J1650; J7030; J7050

== ENCOUNTER 2020-10-06 07:23 | Day surgery (SDC) | payer MEDICARE, BC ==
[~2020-10-06 07:23] MED LIST changes: +CEFUROXIME500 MG PO; +DECADRON6 MG PO; +PREDNISOLONE ACE5 ML OU
[2020-10-06] MEDS ORDERED: ASPIRIN325 MG (07:47)
--- NOTE | 2020-10-06 08:48 | NUR ---
10/06/20 0848 Alicia Ca 0842 PT TO PACU AWAKE AND TALKING DENIES PAIN, REPORTS THROAT IN NUMB.
--- NOTE | 2020-10-06 09:51 | NUR ---
PT ALERT, ORIENTED AND SUPPORTED BY HIS BARRY. PT'S FIRST EGD, EXPRESSED CONCERN REGARDING IV. HE SAID HIS VEINS SEEMS TO ROLL AND MAKE IT DIFFICULT TO GET IV STARTED. SHARED THIS WITH FRANCI GORMAN. ALL QUESTIONS ASKED ANSWERED. BOTH REQUESTED PRAYER. WILL FOLLOW NEEDED
--- NOTE | 2020-10-08 11:38 | OR ---
[facility] [address], [place] [address] Signed DATE OF OPERATION: 10/06/2020 SURGEON: Annetta Morris MD PREOPERATIVE DIAGNOSIS: Known gastroesophageal reflux with hiatal hernia, worsening symptoms since coronavirus disease infection (coronavirus disease 2018 moderately severe infection in May 2020). POSTOPERATIVE DIAGNOSIS: Moderate-sized hiatal hernia. No evidence of esophagitis or Velazquez's epithelium. PROCEDURE: Topical gastroduodenoscopy with biopsy. ANESTHESIA: Intravenous sedation, fentanyl 100 mcg and Versed 4 mg. INDICATION: This 65-year-old white man is well known to me from the past. He is a patient of LATISHA Traore. He last underwent upper endoscopy in 2019, but has undergone upper endoscopy previous to that as well. He is well known to have reflux as well as a hiatal hernia and he is generally well managed with PPI medication. Last May, he suffered COVID disease, for which he was hospitalized with O2 saturations in the low 80s. Ultimately, recovering from it with antibiotic and steroid administration. He believes that since his COVID infection that his hiatal hernia "got bigger." Specifically, meaning his reflux has worsened. He has no associated dysphagia or hematemesis. He is admitted to undergo upper endoscopy to better characterize his current symptoms. He understands the risks of bleeding, infection, and perforation. FINDINGS: The esophageal mucosa was normal. There was no evidence of inflammation stricture or Velazquez's epithelium. Indeed, he does have a hiatal hernia, moderate in configuration and size. The stomach and duodenum appeared normal. CLOtest was negative. DESCRIPTION OF PROCEDURE: The patient was brought to the endoscopy suite and given topical lidocaine Electronically Signed By: ANNETTA MORRIS MD 10/08/20 1138 PATIENT NAME: SLIME FAIR OPERATIVE REPORT DATE OF : 53 REPORT #: [id number] PHYSICIAN: ANNETTA MORRIS MD PCP: RAO MORROW MD REPORT IS CONFIDENTIAL AND NOT TO BE RELEASED WITHOUT AUTHORIZATION [facility] [address], [place] [address] Signed hypopharyngeal spray anesthesia and placed in lateral decubitus position. He was given intravenous sedation to the point of slurred speech and nystagmus. A bite block was placed. An Olympus video upper endoscope was passed in the hypopharynx and the vocal cords appeared normal. The scope was advanced to the esophagus without problem. Throughout its length, it was entirely normal. The scope was advanced into the stomach, which was insufflated with air. Rugal folds were normal. There was no sign of bile within the stomach. The antrum was normal. Pylorus was normal. Scope was passed through and into the normal-appearing duodenum. Biopsies were taken of the duodenum to assess for celiac disease. The scope was withdrawn. A biopsy was then taken of the antrum and proximal stomach for both ZHAO and pathologic testing. Retroflexed view was undertaken showing a dysmorphic flap valve consistent with hiatal hernia. Scope was straightened and withdrawn and biopsies then taken of the distal esophageal mucosa. There was no evidence of Velazquez's epithelium, inflammation, or other abnormality however. Careful withdrawal of scope showed no other findings of concern. The patient was taken to recovery room in good condition having suffered no complication. CONCLUDING DIAGNOSES: Hiatal hernia without associated esophagitis. We would recommend continued use of PPI medication. Consideration for operative intervention is always possible, however, weight loss and other nonsurgical interventions may be of benefit as well. FOLLOWUP PLAN: He will return to see me in approximately 4 to 6 weeks. MD SKYE Orantes/ZACHARY /[id number] cc: LATISHA Traore Copies: ~ Electronically Signed By: ANNETTA MORRIS MD 10/08/20 1138 PATIENT NAME: SLIME FAIR OPERATIVE REPORT DATE OF : 53 REPORT #: [id number] PHYSICIAN: ANNETTA MORRIS MD PCP: RAO MORROW MD REPORT IS CONFIDENTIAL AND NOT TO BE RELEASED WITHOUT AUTHORIZATION
--- NOTE | 2020-10-10 15:42 | PATH ---
[facility] [address], [place] [address] Signed SPECIMEN(S): A DUODENUM SPECIMEN(S): B ANTRUM/PYLORUS SPECIMEN(S): C DISTAL ESOPHAGUS SPECIMEN SOURCE: A. DUODENUM B. ANTRUM/PYLORUS C. DISTAL ESOPHAGUS CLINICAL HISTORY: GERD with esophagitis. Post-op: Hiatal hernia. Esophagogastroduodenoscopy with possible biopsies MICROSCOPIC DESCRIPTION: Histologic sections of all submitted blocks are examined by light microscopy. These findings, together with the gross examination, support the pathologic diagnosis. FINAL PATHOLOGIC DIAGNOSIS: A. Duodenum, biopsy: - Duodenal mucosa with no histopathologic abnormality. - Negative for increased intraepithelial lymphocytes. - Negative for dysplasia or malignancy. B. Stomach, antrum/pylorus, biopsy: - Antral mucosa with reactive gastropathy. - Negative for Helicobacter organisms on HE stain. - Negative for dysplasia or malignancy. C. Esophagus, distal, biopsy: - Squamous mucosa with minimal chronic inflammation and reactive epithelial changes, suggestive of reflux esophagitis. - Negative for intestinal metaplasia, dysplasia, or malignancy. NAL:cml:C2NR GROSS DESCRIPTION: Three specimens are received in three containers, labeled "RP." A. The specimen, labeled "RP, duodenal biopsy," is received in formalin and consists of two girard soft tissue fragments that measure 0.1-0.2 cm in greatest dimension. The specimen is entirely submitted in cassette (A1). B. The specimen, labeled "RP, antrum biopsy," is received in formalin and consists of two girard soft tissue fragments that measure 0.1-0.2 cm in greatest dimension. The specimen is entirely submitted PATIENT NAME: SLIME FAIR PATHOLOGY DATE OF : 53 REPORT #: [id number] PHYSICIAN: FELICITAS CONRAD PCP: RAO MORROW MD REPORT IS CONFIDENTIAL AND NOT TO BE RELEASED WITHOUT AUTHORIZATION [facility] [address] [place] [address] Signed in cassette (B1). C. The specimen, labeled "RP, distal esophagus biopsy," is received in formalin and consists of three girard soft tissue fragments that measure 0.1-0.2 cm in greatest dimension. The specimen is entirely submitted in cassette (C1). JS (under the direct supervision of a pathologist) The Gross Description was prepared using a voice recognition system. The report was reviewed for accuracy; however, sound-alike word errors, addition and/or deletions may occur. If there is any question about this report, please contact Client Services. PERFORMING LABORATORY: The technical component was performed by [facility] [address] (Machine Tool Designer: Shelley Wislon MD; CLIA# [id number]). Professional interpretation was [facility] [place] [address] [address] (CLIA# [id number]). Diagnostician: Judy Mills MD Pathologist Electronically Signed 10/10/2020 Copies: ~ PATIENT NAME: SLIME FAIR PATHOLOGY DATE OF : 53 REPORT #: [id number] PHYSICIAN: FELICITAS CONRAD PCP: RAO MORROW MD REPORT IS CONFIDENTIAL AND NOT TO BE RELEASED WITHOUT AUTHORIZATION
== END 2020-10-06 09:25 | disposition home or self-care (01) ==
LOC: OPS 07:23 → DS 07:23 → OPS 08:30 → DS 10:30
PROVIDERS: ATTEND Surgery
PROC: 0DB68ZZ Excision of Stomach, Via Natural or Artificial Opening Endoscopic (ICD-10-PCS; principal; 2020-10-06 08:30)
DX: K44.9 Diaphragmatic hernia without obstruction or gangrene (principal); K21.00 Gastro-esophageal reflux disease with esophagitis, without bleeding; K31.9 Disease of stomach and duodenum, unspecified; F17.200 Nicotine dependence, unspecified, uncomplicated; Z88.8 Allergy status to other drugs, medicaments and biological substances; Z88.5 Allergy status to narcotic agent; Z88.2 Allergy status to sulfonamides; Z86.16 Personal history of COVID-19; Z87.01 Personal history of pneumonia (recurrent)
CPT/HCPCS: 99153; G0500; J2250; J3010; J7121

== ENCOUNTER 2021-01-18 19:05 | Emergency (ER) | payer MEDICARE, BC ==
[~2021-01-18] VITALS: Ht 180.3 cm; Wt 101.2 kg
[~2021-01-18 19:05] MED LIST changes: +ASPIRIN325 MG
[2021-01-18] MEDS ORDERED: FLAGYL500 MG PO (22:36)
[2021-01-18] MEDS ORDERED: CIPRO500 MG PO (22:36)
[2021-01-18] MEDS ORDERED: HYDROCODON-ACE1 EA10 PO (22:36)
== END 2021-01-18 22:54 | disposition home or self-care (01) ==
LOC: ED 19:05
DX: K57.32 Diverticulitis of large intestine without perforation or abscess without bleeding (principal); Z87.891 Personal history of nicotine dependence; Z88.2 Allergy status to sulfonamides; Z79.899 Other long term (current) drug therapy
CPT/HCPCS: 74177; 80053; 81001; 83690; 85025; 99284-25; Q9967

== ENCOUNTER 2021-12-20 03:25 | Emergency (ER) | payer MEDICARE, BC ==
[~2021-12-20] VITALS: Ht 180.3 cm; Wt 101.2 kg
[~2021-12-20 03:25] MED LIST changes: +CIPRO500 MG PO; +HYDROCODON-ACE1 EA10 PO
--- NOTE | 2021-12-20 11:14 | EKG ---
[facility] [address] [facility] [place] [address] Signed Normal sinus rhythm Left axis deviation Pulmonary disease pattern Nonspecific ST and T wave abnormality Abnormal ECG When compared with ECG of 19-MAY-2020 15:17, No significant change was found Confirmed by THERESA GANNON MD ([id number]) on 12/20/2021 11:14:01 AM Electronically Signed By: THERESA GANNON MD 12/20/21 1114 PATIENT NAME: SLIME FAIR DESIRAE Electrocardiogram DATE OF : 53 PHYSICIAN: THERESA GANNON MD REPORT #: [id number] REPORT IS CONFIDENTIAL AND NOT TO BE RELEASED WITHOUT AUTHORIZATION
== END 2021-12-20 04:27 | disposition home or self-care (01) ==
LOC: ED 03:25
DX: U07.1 COVID-19 (principal); Z87.891 Personal history of nicotine dependence; Z88.2 Allergy status to sulfonamides
CPT/HCPCS: 71045; 93005; 93010; 99285-25

== ENCOUNTER 2023-01-28 10:52 | Day surgery (SDC) | payer MEDICARE, BC ==
[~2023-01-28] VITALS: Ht 177.8 cm; Wt 102.0 kg
--- NOTE | ~2023-01-28 | OR ---
[facility] [address] [place], [place] [address] Draft DATE OF OPERATION: 01/28/2023 SURGEON: Annetta Morris MD PREOPERATIVE DIAGNOSES: 1. History of recurrent diverticulitis. 2. Questionable colitis on CT scan. POSTOPERATIVE DIAGNOSES: Sigmoid and left-sided diverticulosis. No evidence of colitis. PROCEDURE: Total colonoscopy to cecum with biopsy of cecum and rectum. ANESTHESIA: Intravenous sedation, fentanyl 100 mcg and Versed 5 mg. INDICATION: This 67-year-old white man is a patient of Dr. Ariana Drake. He is known to me from the past. He was treated in November with antibiotic, Flagyl and Cipro for an episode consistent with acute diverticulitis. His last colonoscopy was in 2019. Diverticula were noted at that time. He has had issues related to diarrhea which is now resolved. A CT scan was performed which showed "colitis" involving ascending colon and splenic flexure described as multifocal severe colitis. He had no associated bleeding and the possibility of ischemic colitis is acknowledged but uncertain. He is admitted at this time to undergo colonoscopy to better characterize the issue of colitis. Mindful of a well known history of diverticulosis. FINDINGS: The prep was excellent. Complete colonoscopy was undertaken to the cecum without question. He had numerous diverticula of the sigmoid and left colon. He had no evidence of colitis anywhere including the rectum. Biopsies were taken of the cecum and rectum to assure no evidence of occult colitis. DESCRIPTION OF PROCEDURE: The patient was brought to the endoscopy suite and placed in the lateral decubitus position, given intravenous sedation with fentanyl and Versed anesthesia. Full cardiopulmonary monitoring was maintained. An Olympus video colonoscope was passed in the rectum and manipulated throughout the colon noting numerous diverticula of the sigmoid and left colon. The scope was ultimately passed to the cecum which appeared PATIENT NAME: SLIME FAIR OPERATIVE REPORT DATE OF : 53 REPORT #: [id number] PHYSICIAN: ANNETTA MORRIS MD PCP: ARIANA DRAKE MD REPORT IS CONFIDENTIAL AND NOT TO BE RELEASED WITHOUT AUTHORIZATION [facility] [address] [place], [place] [address] Draft uninflamed. Attempts were made to enter the ileum, which was not forthcoming. The scope was then withdrawn and examination throughout showed no sign of abnormality until the left colon and sigmoid where diverticula were once again noted. Biopsies were then taken of the rectum. Retroflexed view showed internal hemorrhoids but no other problems. The scope was straightened, withdrawn and removed. The patient was taken to the recovery room in good condition. CONCLUDING DIAGNOSIS: Diverticulosis without evidence of associated colitis. PLAN: Recommend high-fiber diet at this point. The patient to be reassured there is no evidence of active colitis. MD SKYE Orantes/ZACHARY /[id number] cc: Ariana Drake MD Copies: ARIANA DRAKE DMD ~ PATIENT NAME: SLIME FAIR OPERATIVE REPORT DATE OF : 53 REPORT #: [id number] PHYSICIAN: ANNETTA MORRIS MD PCP: ARIANA DRAKE MD REPORT IS CONFIDENTIAL AND NOT TO BE RELEASED WITHOUT AUTHORIZATION
[~2023-01-28 10:52] MED LIST changes: +METRONIDAZOLE500 MG PO
[2023-01-28 11:05] VITALS: BP 164/86
--- NOTE | 2023-01-28 13:12 | NUR ---
01/28/23 1312 Alicia Ca 1308 PT TO PACU ALERT AND AWAKE DENIES PAIN OR NAUSEA.
[2023-01-28 13:33] VITALS: BP 142/94
--- NOTE | 2023-01-31 17:37 | PATH ---
[facility] [address] [facility] [place], [place] [address] Signed SPECIMEN(S): A CECUM BIOPSY SPECIMEN(S): B RECTUM SPECIMEN SOURCE: A. CECUM BIOPSY B. RECTUM CLINICAL HISTORY: Colonoscopy. History of colitis, diverticulosis FINAL PATHOLOGIC DIAGNOSIS: A. Cecum biopsy: - Colonic mucosa with no significant pathologic abnormalities. - Negative for active inflammation or features of microscopic colitis. - Negative for dysplasia. B. Rectum, biopsy: - Colonic mucosa with focal hyperplastic changes. - Negative for inflammation or dysplasia. NA:emh:C2NR MICROSCOPIC EXAMINATION: Histologic sections of all submitted blocks are examined by light microscopy. These findings, together with the gross examination, support the pathologic diagnosis. GROSS DESCRIPTION: A. The specimen, labeled and designated "John, cecum biopsy," is received in formalin and consists of two girard soft tissue fragments, measuring up to 0.2 cm. Entirely submitted in (A1). B. The specimen, labeled and designated "John, rectum biopsy," is received in formalin and consists of three girard soft tissue fragments, measuring up to 0.2 cm. Entirely submitted in (B1). JS (under the direct supervision of a pathologist) The Gross Description was prepared using a voice recognition system. The report was reviewed for accuracy; however, sound-alike word errors, addition and/or deletions may occur. If there is any question about this report, please contact Client Services. PERFORMING LABORATORY: Technical component was performed by [facility] [employer] [address] [place] [id number] (CLIA# [id number]). Professional interpretation was PATIENT NAME: SLIME FAIR PATHOLOGY DATE OF : 53 REPORT #: [id number] PHYSICIAN: [facility] PCP: ARIANA DRAKE MD REPORT IS CONFIDENTIAL AND NOT TO BE RELEASED WITHOUT AUTHORIZATION [facility] [address] [place], [place] [address] Signed performed by [employer] [employer] [address] [place] [address] (CLIA# [id number]). Diagnostician: Chin Andrwe MD Pathologist Electronically Signed 01/31/2023 Copies: ~ PATIENT NAME: SLIME FAIR PATHOLOGY DATE OF : 53 REPORT #: [id number] PHYSICIAN: [facility] PCP: ARIANA DRAKE MD REPORT IS CONFIDENTIAL AND NOT TO BE RELEASED WITHOUT AUTHORIZATION
== END 2023-01-28 13:45 | disposition home or self-care (01) ==
LOC: OPS 10:52 → DS 10:52 → OPS 12:00 → DS 12:00 → OPS 13:45 → DS 14:00
PROVIDERS: ATTEND Surgery
PROC: 0DBP8ZX Excision of Rectum, Via Natural or Artificial Opening Endoscopic, Diagnostic (ICD-10-PCS; 2023-01-28)
PROC: 0DBH8ZX Excision of Cecum, Via Natural or Artificial Opening Endoscopic, Diagnostic (ICD-10-PCS; principal; 2023-01-28 12:00)
DX: K57.30 Diverticulosis of large intestine without perforation or abscess without bleeding (principal)
CPT/HCPCS: 99153; G0500; J2250; J3010; J7121

== ENCOUNTER 2023-05-14 13:37 | Emergency (ER) | payer MEDICARE, BC ==
[~2023-05-14] VITALS: Ht 177.8 cm; Wt 101.6 kg
--- OUTSIDE RECORDS SUMMARY | 2023-05-14 13:41 | XMS ---
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 Care History Medical/Surgical 07/29/2019 [facility] - PATIENT WAS REFERRED BY DR MACKEY TO PCP -DR MORROW FOR A FOLLOW UP APT- - PATIENT IS FOLLOWING UP WITH PCP DR MORROW TODAY 07/29/2019 @ 11:30. E.D. VISIT COUNT (12 MO.) 3 DANYELLE [facility] TOTAL 4 NOTE: Visits indicate total known visits. ED/UCC VISIT TRACKING (12 MO.) 05/14/2023 13:38 DANYELLE [facility] [place] TYPE: Emergency COMPLAINT: - HIGH HEART RATE, DIZZY, HEADACHE, HEARTBURN 05/09/2023 12:56 [facility] TYPE: Emergency DIAGNOSES: - Other cerebral infarction due to occlusion or stenosis of small artery - Abnormal Labs - Evaluation Of Abnormal Diagnostic Test 11/04/2022 19:58 [facility] [place] TYPE: Emergency COMPLAINT: - CHEST PAIN DIAGNOSES: - Allergy status to sulfonamides - Diarrhea, unspecified - Noninfective gastroenteritis and colitis, unspecified - Personal history of nicotine dependence 11/02/2022 21:21 [facility] [place] TYPE: Emergency COMPLAINT: - FEVER, DIARRHEA AND HEADACHE DIAGNOSES: - Allergy status to sulfonamides - Diarrhea, unspecified - Personal history of nicotine dependence INPATIENT VISIT TRACKING (12 MO.) [facility] DIAGNOSES: - Cerebral infarction due to unspecified occlusion or stenosis of unspecified carotid artery - Cerebral infarction, unspecified - Nonrheumatic aortic (valve) insufficiency - Other cerebral infarction due to occlusion or stenosis of small artery [email or web address]
[2023-05-14] MEDS ORDERED: ATORVASTATIN CA80 MG (13:54)
[2023-05-14] MEDS ORDERED: LOSARTAN POTAS100 MG (13:54)
[2023-05-14] MEDS ORDERED: OMEPRAZOLE20 MG (13:54)
[2023-05-14] MEDS ORDERED: CLOPIDOGREL75 MG (13:54)
[2023-05-14] MEDS ORDERED: AMLODIPINE BESYL5 MG (13:54)
[2023-05-14 14:11] LABS: BASOPHILS 0.6 % (0-2); EOSINOPHILS 2.7 % (0-6); HEMOGLOBIN 14.4 g/dL (12.0-18.0); LYMPHOCYTES 22.2 % (24-44); MCHC 34.3 g/dl (30-36); MCV 84.7 fl (81-99); MONOCYTES 10.9 % (0-12); NEUTROPHILS 63.6 % (39-80); PLATELET COUNT 272 K/uL (140-440); RBC 4.96 M/ul (4.3-5.7); RDW 14.1 (10.5-15.0)
[2023-05-14 14:33] LABS: ALBUMIN 3.5 g/dL (3.4-5.0); ALBUMIN/GLOBULIN RATIO 1.03 (1.1-2.4); ANION GAP 15.1 (7-21); BILIRUBIN, TOTAL 0.5 ng/dL (0.2-1.0); MAGNESIUM 2.1 mg/dL (1.8-2.4); POTASSIUM 4.1 mmol/L (3.5-5.1); PROTEIN, TOTAL 6.9 g/dL (6.4-8.2)
[2023-05-14 17:19] VITALS: BP 129/82
--- NOTE | 2023-05-15 11:54 | EKG ---
[facility] [address] [facility] [place] [address] Signed Atrial fibrillation with rapid ventricular response Pulmonary disease pattern Left anterior fascicular block Nonspecific ST abnormality Abnormal ECG When compared with ECG of 04-NOV-2022 20:00, Atrial fibrillation has replaced Sinus rhythm Vent. rate has increased BY 67 BPM Nonspecific T wave abnormality no longer evident in Anterior leads Confirmed by MARCY WILKINSON MD ([id number]) on 05/15/2023 11:54:37 AM Electronically Signed By: MARCY WILKINSON 05/15/23 1154 PATIENT NAME: MARVSLIME DESIRAE Electrocardiogram DATE OF : 53 PHYSICIAN: MARCY WILKINSON REPORT #: [id number] REPORT IS CONFIDENTIAL AND NOT TO BE RELEASED WITHOUT AUTHORIZATION
--- NOTE | 2023-05-15 11:55 | EKG ---
[facility] [address] [facility] [place] [address] Signed Normal sinus rhythm Pulmonary disease pattern Left anterior fascicular block Nonspecific ST and T wave abnormality Abnormal ECG When compared with ECG of 14-MAY-2023 13:45, (Unconfirmed) Sinus rhythm has replaced Atrial fibrillation Vent. rate has decreased BY [address] no longer depressed in Lateral leads Nonspecific T wave abnormality now evident in Anterior leads Confirmed by MARCY WLIKINSON MD ([id number]) on 05/15/2023 11:54:44 AM Electronically Signed By: MARCY WILKINSON 05/15/23 1155 PATIENT NAME: SLIME FAIR Electrocardiogram DATE OF : 53 PHYSICIAN: MARCY WILKINSON REPORT #: [id number] REPORT IS CONFIDENTIAL AND NOT TO BE RELEASED WITHOUT AUTHORIZATION
== END 2023-05-14 17:20 | disposition home or self-care (01) ==
LOC: ED 13:37
PROVIDERS: Emergency Medicine
DX: I48.91 Unspecified atrial fibrillation (principal); Z86.73 Personal history of transient ischemic attack (TIA), and cerebral infarction without residual deficits; Z87.891 Personal history of nicotine dependence; Z88.5 Allergy status to narcotic agent; Z88.2 Allergy status to sulfonamides; Z79.899 Other long term (current) drug therapy
CPT/HCPCS: 36415; 71045; 80053; 83735; 84484; 85025; 93005; 93010; A9270; J2704; J7030

== ENCOUNTER 2024-07-29 19:48 | Emergency (ER) | payer MEDICARE, BC ==
[~2024-07-29] VITALS: Ht 177.8 cm; Wt 108.4 kg
[~2024-07-29 19:48] MED LIST changes: +AMLODIPINE BESYL5 MG; +ATORVASTATIN CA80 MG; +CLOPIDOGREL75 MG; +ELIQUIS5 MG PO; +LOSARTAN POTAS100 MG; +METOPROLOL SUCC50 MG PO; +OMEPRAZOLE20 MG; +ROSUVASTATIN CA40 MG PO
[2024-07-29] MEDS ORDERED: AMIODARONE HCL200 MG PO (20:02)
[2024-07-29] MEDS ORDERED: VALSARTAN160 MG PO (20:02)
[2024-07-29] MEDS ORDERED: ASPIRIN 81 MG CHEW PO ONE (20:15)
[2024-07-29 20:24] LABS: BASOPHILS 0.9 % (0-2); EOSINOPHILS 6.7 % (0-6); HEMATOCRIT 38.6 % (35.0-50.0); HEMOGLOBIN 13.4 g/dL (12.0-18.0); LYMPHOCYTES 27.2 % (24-44); MCH 29.5 (27-36); MCHC 34.8 g/dl (30-36); MCV 84.8 fl (81-99); MONOCYTES 11.3 % (0-12); NEUTROPHILS 53.9 % (39-80); PLATELET COUNT 234 K/uL (140-440); RBC 4.55 M/ul (4.3-5.7); RDW 13.9 (10.5-15.0)
[2024-07-29 20:32] LABS: INR 1.05 (0.80-1.30); PROTIME 13.6 Sec (11.2-14.2)
[2024-07-29 20:44] LABS: ALBUMIN 3.5 g/dL (3.4-5.0); ALBUMIN/GLOBULIN RATIO 0.95 (1.1-2.4); ANION GAP 15.2 (7-21); BILIRUBIN, TOTAL 0.4 ng/dL (0.2-1.0); BUN/CREATININE RATIO 11.2 (6.0-28.6); CALCIUM 9.1 mg/dL (8.5-10.1); CREATININE, SERUM 1.25 mg/dL (0.70-1.30); POTASSIUM 4.2 mmol/L (3.5-5.1); PROTEIN, TOTAL 7.2 g/dL (6.4-8.2)
[2024-07-29] MEDS ORDERED: CYCLOBENZAPRINE10 MG PO (22:12)
[2024-07-29] MEDS ORDERED: CYCLOBENZAPRINE HCL 10 MG HOME.PACK PO ONE (22:15)
--- NOTE | 2024-07-29 22:28 | EKG ---
[facility] [address] [facility] [place] [address] Signed Sinus bradycardia Left axis deviation Nonspecific ST and T wave abnormality Abnormal ECG When compared with ECG of 10-FEB-2024 17:36, Sinus rhythm has replaced Atrial fibrillation Vent. rate has decreased BY 52 BPM Confirmed by Maria Luisa Crocker MD () on 07/29/2024 10:28:14 PM Electronically Signed By: MARIA LUISA CROCKER MD 07/29/24 2228 PATIENT NAME: SLIME FAIR Electrocardiogram DATE OF : 53 PHYSICIAN: MARIA LUISA CROCKER MD REPORT #: [id number] REPORT IS CONFIDENTIAL AND NOT TO BE RELEASED WITHOUT AUTHORIZATION
[2024-07-29 22:54] VITALS: BP 125/80
== END 2024-07-29 22:56 | disposition home or self-care (01) ==
LOC: ED 19:48
PROVIDERS: Family Medicine
DX: R07.89 Other chest pain (principal); I48.91 Unspecified atrial fibrillation; G43.809 Other migraine, not intractable, without status migrainosus; Z86.73 Personal history of transient ischemic attack (TIA), and cerebral infarction without residual deficits; Z86.16 Personal history of COVID-19; Z87.891 Personal history of nicotine dependence; Z88.2 Allergy status to sulfonamides; Z88.5 Allergy status to narcotic agent; Z88.8 Allergy status to other drugs, medicaments and biological substances; Z79.01 Long term (current) use of anticoagulants; Z79.899 Other long term (current) drug therapy
CPT/HCPCS: 36415; 71045; 80053; 83735; 83880; 84484; 85025; 85379; 85610; 93005; 93010; 99285-25; A9270

== ENCOUNTER 2024-12-24 05:55 | Day surgery (SDC) | payer MEDICARE, BC ==
[~2024-12-24] VITALS: Ht 177.8 cm; Wt 106.8 kg
[~2024-12-24 05:55] MED LIST changes: +AMIODARONE HCL200 MG PO; +CYCLOBENZAPRINE10 MG PO; +MIDAZOLAM HCL 5 MG/5 ML VIAL IV PRN; +VALSARTAN160 MG PO; +fentaNYL citrate 100 MCG/2 ML VIAL IV PRN
[2024-12-24 06:17] VITALS: BP 134/90
[2024-12-24] MEDS ORDERED: PRILOSEC OTC20 MG PO (06:26)
[2024-12-24] MEDS ORDERED: ECHINACEA GOLD PO (06:27)
[2024-12-24] MEDS ORDERED: PROBIOTIC 5 BI1 EACH PO (06:28)
[2024-12-24] MEDS ORDERED: VITAMIN C WIT1000 MG PO (06:29)
[2024-12-24] MEDS ORDERED: VITAMIN D3125 MCG PO (06:30)
[2024-12-24] MEDS ORDERED: TUMS300 MG PO (06:30)
[2024-12-24] MEDS ORDERED: TYLENOL EXTRA500 MG PO (06:30)
[2024-12-24] MEDS ORDERED: MIDAZOLAM HCL 5 MG/5 ML VIAL ONE (06:53)
[2024-12-24] MEDS ORDERED: fentaNYL citrate 100 MCG/2 ML VIAL ONE (06:53)
[2024-12-24] MEDS ORDERED: LACTATED RINGER'S 1,000 ML IV SCH (07:00)
[2024-12-24] MEDS ORDERED: IBLOOD GLUCOSE TEST STRIP 1 EA TEST VI PRN (07:00)
[2024-12-24] MEDS ORDERED: LIDOCAINE HCL 1% 5 ML SDV INJ ONE (07:00)
--- NOTE | 2024-12-24 08:06 | NUR ---
12/24/24 0806 Nivia Saldaña 0758-PATIENT ARRIVED TO PACU ON 3L NC PLACED ON 2L. PATIENT DROWSY AROUSES TO VERBAL STIMULI DENIES PAIN OR NAUSEA. PATIENT LAYING LEFT LATERAL IVF INFUSING. ABDOMEN SOFT. 0805-PATIENT PASSING GAS. DOZES BACK TO SLEEP.
[2024-12-24 08:51] VITALS: BP 135/93
--- NOTE | 2024-12-24 09:39 | OR ---
[facility] [address] [place], [place] [address] Signed DATE OF OPERATION: 12/24/2024 SURGEON: Annetta Morris MD PREOPERATIVE DIAGNOSIS: Progressive abdominal bloating, known history of diverticulosis. POSTOPERATIVE DIAGNOSIS: Sigmoid diverticulosis, otherwise normal. PROCEDURE: Total colonoscopy to cecum with biopsy of cecum and rectum. ANESTHESIA: Intravenous sedation fentanyl 100 mcg and Versed 4 mg. INDICATION: This 69-year-old white man is a patient of Janell Mitchell. He is referred for consideration of colonoscopy. He last underwent colonoscopy five years ago. He has had episodes of diverticulitis in the past. He has undergone cholecystectomy in the past as well. His bloating is not associated with rectal bleeding or nausea or vomiting. He does have benign prostatic hypertrophy by clinical criteria as well. He is referred for colonoscopy on the basis of the abdominal bloating, mindful his last colonoscopy was five years ago showing only diverticulosis. The risk of bleeding, infection, perforation, and other unforeseen complications was reviewed with him. He understands and wished to proceed. FINDINGS: The prep was excellent. Complete colonoscopy was undertaken of the cecum with good visualization of the cecum and the ileocecal valve. The only finding of note was significant diverticular changes of the sigmoid and left colon. There was no evidence of colitis or polyps, cancer, or other abnormality. DESCRIPTION OF PROCEDURE: The patient was brought to the endoscopy suite and placed in lateral decubitus position, given intravenous sedation to the point of slurred speech and nystagmus. Digital rectal examination was normal. An Olympus video colonoscope was passed in the rectum and manipulated throughout the colon ultimately intubating the cecum itself. The ileocecal valve and appendiceal Electronically Signed By: ANNETTA MORRIS MD 12/24/24 0939 PATIENT NAME: SLIME FAIR OPERATIVE REPORT DATE OF : 53 REPORT #: [id number] PHYSICIAN: ANNETTA MORRIS MD PCP: JANELL MITCHELL PAC REPORT IS CONFIDENTIAL AND NOT TO BE RELEASED WITHOUT AUTHORIZATION [facility] [address] [place], [place] [address] Signed orifice were normal. Biopsies were taken of the normal-appearing cecum to rule out occult colitis. The scope was withdrawn and examination showed no sign of abnormality other than diverticula of the sigmoid and left colon. The rectum was normal. Biopsies were obtained there as well. Retroflexed view showed no significant problem. Scope was removed. The patient was taken to the recovery room in good condition. CONCLUDING DIAGNOSIS: Diverticulosis without evidence of obstruction or angulation deformity. No evidence of polyps or colitis. PLAN: Recommend high-fiber diet. He will return to the ongoing care of LATISHA Traore. MD SKYE Orantes/ZACHARY /[id number] cc: Janell Mitchell PA-C Copies: ~ Electronically Signed By: ANNETTA MORRIS MD 12/24/24 0939 PATIENT NAME: SLIME FAIR OPERATIVE REPORT DATE OF : 53 REPORT #: [id number] PHYSICIAN: ANNETTA MORRIS MD PCP: JANELL MITCHELL PAC REPORT IS CONFIDENTIAL AND NOT TO BE RELEASED WITHOUT AUTHORIZATION
--- NOTE | 2024-12-27 16:07 | PATH ---
[facility] [address] [place], [place] [address] Signed SPECIMEN(S): A CECUM COLON BIOPSY SPECIMEN(S): B RECTUM BIOPSY SPECIMEN SOURCE: A. CECUM COLON BIOPSY B. RECTUM BIOPSY CLINICAL HISTORY: Pre: Abdominal bloating. Post: Diverticulosis. FINAL PATHOLOGIC DIAGNOSIS: A. Cecum colon biopsy: - Benign colonic mucosa, negative for dysplasia or pathologic inflammation. B. Rectum biopsy: - Benign colonic mucosa with focal slight hyperplastic features, negative for pathologic inflammation. JVR:morgan MICROSCOPIC EXAMINATION: Histologic sections of all submitted blocks are examined by light microscopy. These findings, together with the gross examination, support the pathologic diagnosis. GROSS DESCRIPTION: A. The specimen, labeled and designated "John, cecum biopsy," is received in formalin and consists of one girard soft tissue fragment, 0.3 cm. Entirely submitted in (A1). B. The specimen, labeled and designated "John, rectum biopsy," is received in formalin and consists of two girard soft tissue fragments, ranging from 0.2 cm. Entirely submitted in (B1). JS (under the direct supervision of a pathologist) The Gross Description was prepared using a voice recognition system. The report was reviewed for accuracy; however, sound-alike word errors, addition and/or deletions may occur. If there is any question about this report, please contact Client Services. PERFORMING LABORATORY: Technical component was performed by [facility], [address] [place] [id number] (CLIA# [id number]). Professional interpretation was performed by [facility] - [facility], [address] [place] [phone] (CLIA#: [id number]). PATIENT NAME: SLIME FAIR PATHOLOGY DATE OF : 53 REPORT #: [id number] PHYSICIAN: [facility] PATHOLOG[facility] PCP: JANELL MITCHELL PAC REPORT IS CONFIDENTIAL AND NOT TO BE RELEASED WITHOUT AUTHORIZATION [facility] [address] [place] [address] Signed Diagnostician: Shelton Blount MD Pathologist Electronically Signed 12/27/2024 Copies: ~ PATIENT NAME: SLIME FAIR PATHOLOGY DATE OF : 53 REPORT #: [id number] PHYSICIAN: [facility] PATHOLOG[facility] PCP: JANELL MITCHELL PAC REPORT IS CONFIDENTIAL AND NOT TO BE RELEASED WITHOUT AUTHORIZATION
== END 2024-12-24 08:58 | disposition home or self-care (01) ==
LOC: DS 05:55
PROVIDERS: ATTEND Surgery
PROC: 0DBP8ZX Excision of Rectum, Via Natural or Artificial Opening Endoscopic, Diagnostic (ICD-10-PCS; 2024-12-24)
PROC: 0DBH8ZX Excision of Cecum, Via Natural or Artificial Opening Endoscopic, Diagnostic (ICD-10-PCS; principal; 2024-12-24 07:30)
DX: K57.30 Diverticulosis of large intestine without perforation or abscess without bleeding (principal); R39.11 Hesitancy of micturition; I10 Essential (primary) hypertension; K21.9 Gastro-esophageal reflux disease without esophagitis; F17.200 Nicotine dependence, unspecified, uncomplicated; K64.9 Unspecified hemorrhoids; K58.1 Irritable bowel syndrome with constipation; Z88.8 Allergy status to other drugs, medicaments and biological substances; Z88.5 Allergy status to narcotic agent; Z88.2 Allergy status to sulfonamides; Z79.899 Other long term (current) drug therapy; K21.00 Gastro-esophageal reflux disease with esophagitis, without bleeding; Z87.19 Personal history of other diseases of the digestive system
CPT/HCPCS: 88305; 99153; G0500; J2250; J3010; J7121

== ENCOUNTER 2025-02-05 09:28 | Emergency (ER) | payer MEDICARE, BC ==
[~2025-02-05] VITALS: Ht 177.8 cm; Wt 107.2 kg
[~2025-02-05 09:28] MED LIST changes: +ECHINACEA GOLD PO; -MIDAZOLAM HCL 5 MG/5 ML VIAL IV PRN; +PROBIOTIC 5 BI1 EACH PO; +TUMS300 MG PO; +TYLENOL EXTRA500 MG PO; +VITAMIN C WIT1000 MG PO; +VITAMIN D3125 MCG PO; -fentaNYL citrate 100 MCG/2 ML VIAL IV PRN
[2025-02-05] MEDS ORDERED: AMOX TR-K CLV1 EAC1 PO (11:23)
[2025-02-05 11:41] VITALS: BP 123/86
== END 2025-02-05 11:42 | disposition home or self-care (01) ==
LOC: ED 09:28
DX: S91.342A Puncture wound with foreign body, left foot, initial encounter (principal); I48.91 Unspecified atrial fibrillation; Z86.73 Personal history of transient ischemic attack (TIA), and cerebral infarction without residual deficits; Z86.16 Personal history of COVID-19; Z87.891 Personal history of nicotine dependence; Z88.2 Allergy status to sulfonamides; Z88.8 Allergy status to other drugs, medicaments and biological substances; Z79.01 Long term (current) use of anticoagulants; Z79.899 Other long term (current) drug therapy; W22.8XXA Striking against or struck by other objects, initial encounter
CPT/HCPCS: 73620; 73630; 99283